=== PATIENT | male | born 1955 | race Caucasian/White ===

== ENCOUNTER 2025-10-09 11:25 | Outpatient (CLI) | payer MEDICARE, SELFPAY ==
--- NOTE | ~2025-10-09 | XR_ITS ---
EXAMINATION: XR chest 2V, 10/09/2025 11:30 RETAIL ASSISTANT HISTORY: J44.1 - Chronic obstructive pulmonary disease with (acute... COMPARISON: No comparisons available. Technique: 2 views obtained. Findings: The lungs are clear, no effusion. No pneumothorax. Heart is normal size. Mediastinal and hilar contours are within normal limits. Bony thorax no acute abnormality. Impression: No acute cardiopulmonary abnormality. Reviewed, dictated and finalized at location P. [place] ASSISTANT Impression: No acute cardiopulmonary abnormality.
[2025-10-09 18:47] LABS: Alanine Aminotransferase 21 U/L (6-50); Albumin Level 4.4 g/dL (3.5-5.1); Alkaline Phosphatase 103 U/L (38-126); Anion Gap 8 mmol/L (4-12); Aspartate Amino Transferase 63 U/L (17-59); Bilirubin,Total 0.5 mg/dL (0.2-1.3); Blood Urea Nitrogen 29 mg/dL (9-20); Calcium 9.5 mg/dL (8.4-10.2); Carbon Dioxide 27 mmol/L (22-30); Chloride 99 mmol/L (98-107); Estimated Glomerular Filt Rate 51; Glucose 157 mg/dL (65-110); Potassium 4.6 mmol/L (3.4-5.0); Sodium 134 mmol/L (137-145); Total Protein 8.2 g/dL (6.3-8.2)
[2025-10-09 18:53] LABS: NT Pro B Type Natriuretic Pept 786 pg/mL (19.9-100)
[2025-10-09 18:54] LABS: Hematocrit 48.5 % (42.0-52.0); Hemoglobin 15.1 g/dL (14.0-18.0); Mean Corpuscular HGB Conc 31.1 g/dl (32-36); Mean Corpuscular Hemoglobin 27.8 pg (26-34); Mean Corpuscular Volume 89.3 fl (80-100); Platelet Count Result 177 k/mm3 (150-375); Red Blood Count 5.43 M/mm3 (4.6-6.20); White Blood Count 9.6 K/mm3 (4.5-10.0)
[2025-10-15 13:49] LABS: Labcorp Miscellaneous Test 21.5
== END 2025-10-09 11:26 | disposition home or self-care (01) ==
PROVIDERS: PCP Nurse Practitioner Adult Health; Visit Provider Nurse Practitioner Adult Health
DX: J44.1 Chronic obstructive pulmonary disease with (acute) exacerbation (principal); R68.83 Chills (without fever); I50.9 Heart failure, unspecified; I11.0 Hypertensive heart disease with heart failure
CPT/HCPCS: 36415; 71046; 80053; 83880; 85027

== ENCOUNTER 2025-10-25 11:39 | Inpatient (IN) | payer MEDICARE, SELFPAY ==
[2025-10-25] VITALS (17 sets, daily range): BP systolic 101–123; BP diastolic 65–82; PULSE 84–117; RESP 18–26; TEMP 36.8–37; O2SAT 93–100; BMI 24.3
--- NOTE | ~2025-10-25 | XR_ITS ---
EXAMINATION: XR chest 1V portable COMPARISON: No comparisons available. HISTORY: shortness of breath FINDINGS: The lungs are clear, no effusion. No pneumothorax. Heart is normal size. Mediastinal and hilar contours are within normal limits. Bony thorax no acute abnormality. Miscellaneous: None Impression: No acute cardiopulmonary abnormality. Reviewed, dictated and finalized at location [facility] Impression: No acute cardiopulmonary abnormality.
--- NOTE | 2025-10-25 11:53 | ECG_ITS ---
Test Date: 2025-10-25 12:00:58 Measurements Intervals [place] Rate: 94 P: 0 NE: 0 QRS: -44 QRSD: 101 T: 82 QT: 345 QTc: 431 Interpretive Statements SINUS RHYTHM LOW QRS VOLTAGE IN PRECORDIAL LEADS INFERIOR INFARCT, AGE INDETERMINATE ANTEROLATERAL INFARCT, AGE INDETERMINATE BORDERLINE ST-T WAVE ABNORMALITY- HIGH LATERAL LEADS BASELINE ARTIFACT- I, II, III, AVR, AVL, AVF, V1-V6 ABNORMAL ECG no prior ECG available for comparison Electronically Signed On 10-25-2025 13:08:29 [employer] H[employer] by Villa Mares D.O.
[2025-10-25 12:30] LABS: Hematocrit 43.4 % (42.0-52.0); Hemoglobin 13.9 g/dL (14.0-18.0); Immature Granulocyte Percent A 1.4 % (0-0.5); Immature Platelet Fraction Pct 4.8 % (0.9-11.2); Lymphocytes Absolute Auto 1.10 K/mm3 (0.9-3.2); Mean Corpuscular HGB Conc 32.0 g/dl (32-36); Mean Corpuscular Hemoglobin 28.4 pg (26-34); Mean Corpuscular Volume 88.6 fl (80-100); Nucleated Red Blood Cells Absolute Auto 0.000 K/mm3 (0.0-0.012); Nucleated Red Blood Cells Perc 0.0 % (0.0-0.2); Platelet Count Result 140 k/mm3 (150-375); Red Blood Count 4.90 M/mm3 (4.6-6.20); White Blood Count 9.2 K/mm3 (4.5-10.0)
[2025-10-25 12:52] LABS: Alanine Aminotransferase 20 U/L (6-50); Albumin Level 3.8 g/dL (3.5-5.1); Alkaline Phosphatase 120 U/L (38-126); Anion Gap 6 mmol/L (4-12); Aspartate Amino Transferase 30 U/L (17-59); Bilirubin,Total 0.6 mg/dL (0.2-1.3); Blood Urea Nitrogen 30 mg/dL (9-20); Calcium 9.1 mg/dL (8.4-10.2); Carbon Dioxide 23 mmol/L (22-30); Chloride 104 mmol/L (98-107); Estimated CRCL calculation 51 ml/min; Estimated Glomerular Filt Rate 53; Glucose 131 mg/dL (65-110); Potassium 4.6 mmol/L (3.4-5.0); Sodium 133 mmol/L (137-145); Total Protein 7.1 g/dL (6.3-8.2)
[2025-10-25] MEDS: ALBUTEROL SULFATE NEB 2.5 MG/3 ML INH 15 MG INHALATION (12:55)
[2025-10-25] MEDS: IPRATROPIUM BR 0.02% INH SOLN 0.5 MG/2.5 ML VIAL 1.5 MG INHALATION (12:56)
[2025-10-25 13:15] LABS: NT Pro B Type Natriuretic Pept 1650 pg/mL (19.9-100)
[2025-10-25 13:18] LABS: INR 1.0; Prothrombin Time 13.4 Seconds (11.1-14.7)
[2025-10-25 13:19] LABS: Partial Thromboplastin Time 26.0 Seconds (22.3-36.8)
--- NOTE | 2025-10-25 13:53 | ED.SOB ---
HPI - SOB/Dyspnea General Chief Complaint: Shortness of Breath/Dyspnea Stated Complaint: HIGH HR, SOB, hx afib Time Seen by Provider: 10/25/25 12:02 History of Present Illness HPI Narrative: Patient is a 69-year-old male who presents ER with shortness of breath. He was recently treated for possible pneumonia and completed 10 days of doxycycline. He also completed a course of steroids 1 week ago. After finishing steroids, he began having increased dyspnea. He has trouble walking due shortness of breath is now unable to walk across the room. No chest pain. Mild to productive cough. No fevers he does have chills. No known sick contacts. Related Data Home Medications ?Medication ?Instructions ?Recorded ?Confirmed ?Last Taken ?Type albuterol sulfate 90 mcg/actuation 1 puff inhalation Q4H PRN 10/09/25 10/25/25 10/25/25 History aerosol inhaler (Ventolin HFA) shortness of breath or wheezing aripiprazole 5 mg tablet 5 mg PO DAILY 10/09/25 10/25/25 10/25/25 History aspirin 81 mg tablet 81 mg PO DAILY 10/09/25 10/25/25 10/25/25 History budesonide 0.5 mg/2 mL suspension 0.5 mg inhalation DAILY 10/09/25 10/25/25 10/25/25 History for nebulization carvedilol 12.5 mg tablet 6.25 mg PO Q12H 10/09/25 10/25/25 10/25/25 History cyproheptadine 4 mg tablet See Rx Instructions PO QHS 10/09/25 10/25/25 10/24/25 History Nightmares divalproex 250 mg tablet,extended 250 mg PO QPM 10/09/25 10/25/25 10/24/25 History release 24 hr empagliflozin 25 mg tablet 12.5 mg PO DAILY 10/09/25 10/25/25 10/25/25 History furosemide 40 mg tablet (Lasix) 40 mg PO QAM 10/09/25 10/25/25 10/25/25 History gabapentin 300 mg capsule 300 mg PO QHS 10/09/25 10/25/25 10/24/25 History ipratropium 0.5 mg-albuterol 3 mg 3 ml inhalation Q6H PRN wheezing 11/10/25/25 10/25/25 History (2.5 mg base)/3 mL nebulization soln levetiracetam 750 mg tablet 750 mg PO Q12H 10/09/25 10/25/25 10/25/25 History mirtazapine 15 mg tablet 15 mg PO QHS 10/09/25 10/25/25 10/24/25 History rivaroxaban 20 mg tablet 20 mg PO QPM 10/09/25 10/25/25 10/24/25 History sacubitril 49 mg-valsartan 51 mg 1 tablet PO BID 10/09/25 10/25/25 10/25/25 History tablet sertraline 100 mg tablet 100 mg PO DAILY 10/09/25 10/25/25 10/24/25 History spironolactone 25 mg tablet 25 mg PO DAILY 10/09/25 10/25/25 10/25/25 History tamsulosin 0.4 mg capsule 0.4 mg PO DAILY 10/09/25 10/25/25 10/24/25 History Allergies Allergy/AdvReac Type Severity Reaction Status Date / Time diazepam (From Valium) Allergy Severe Anxiety Verified 10/25/25 11:42 Review of Systems Review of Systems: All systems reviewed & are unremarkable except as noted in HPI and below Constitutional: Constitutional: Reports no additional constitutional complaints ENT: Reports system reviewed and no additional complaints, except as documented Cardiovascular: Cardiovascular: Reports no additional cardiovascular complaints Respiratory: Respiratory: Reports no additional respiratory complaints Musculoskeletal: Musculoskeletal: Reports no additional musculoskeletal complaints Neurologic: Reports system reviewed and no additional complaints, except as documented PMFSH Past Medical History Medical History (Updated 10/25/25 @ 21:44 by Guillermo Villarreal MD) COPD (chronic obstructive pulmonary disease) Heart failure Hypertension Social History Social History Smoking status: Former smoker Alcohol intake: never Substance use: never Substance use type: does not use Lack of Transportation: No Lack of Food: Never True Current Housing: I Have Housing Concerned About Future Housing: No Difficulty Paying Gas/Electric Bills: No Difficulty Paying for Meds: No Currently Unemployed: No Education: Associate Degree Difficulty w/ Childcare or Family Care: No Spiritual care concerns: No Exam Narrative: GENERAL: Chronically ill-appearing, well-nourished, and in no acute distress. HEAD: Normocephalic, atraumatic. ENT: Mucous membranes moist. CHEST: Diffuse expiratory wheezing. No respiratory distress. HEART: Regular rate and rhythm. Normal peripheral pulses. ABDOMEN: Soft, nontender, nondistended. EXTREMITIES: Normal range of motion. No edema. SKIN: Warm, dry, no rash. NEURO: Alert and oriented x3. PSYCH: Normal mood and affect. Course Course Emergency Course: Wheezing improved but still present after hour long nebulizer treatment. He has received steroids. No hypoxia but has difficulty with ambulation. Admit for continued therapy. Vital Signs Vital signs: Vital Signs Temperature 98.6 F 10/25/25 11:54 Pulse Rate 97 10/25/25 11:54 Respiratory Rate 26 H 10/25/25 11:54 Blood Pressure 119/82 10/25/25 11:54 Pulse Oximetry 100 10/25/25 11:54 Oxygen Delivery Room Air 10/25/25 11:54 Temperature 98.2 F 10/25/25 20:25 Pulse Rate 105 H 10/25/25 20:25 Respiratory Rate 20 10/25/25 20:25 Blood Pressure 102/65 10/25/25 20:25 Pulse Oximetry 95 10/25/25 20:25 Oxygen Delivery Room Air 10/25/25 12:19 MDM Differential Diagnosis Differential Diagnosis: Pneumonia, COPD exacerbation, heart failure exacerbation, pneumothorax, coronary syndrome Lab Data [facility] Lab Attestation statement: I personally reviewed the patient's lab results. 10/25/25 12:20 10/25/25 12:20 Labs: Lab Results 10/25/25 10/25/25 10/25/25 Range/Units 12:20 13:13 16:35 WBC 9.2 (4.5-10.0) K/mm3 RBC 4.90 (4.6-6.20) M/mm3 Hgb 13.9 L (14.0-18.0) g/dL Hct 43.4 (42.0-52.0) % MCV 88.6 (80-100) fl MCH 28.4 (26-34) pg MCHC 32.0 (32-36) g/dl RDW 14.6 H (11.5-14.5) % Plt Count 140 L (150-375) k/mm3 MPV 10.8 H (7.4-10.4) fl Immature Gran % (Auto) 1.4 H (0-0.5) % Neut % (Auto) 72.8 (45.5-73.1) % Lymph % (Auto) 12.0 L (18.3-44.2) % Eddy % (Auto) 9.7 H (2.6-8.5) % Eos % (Auto) 3.3 (0-4.4) % Baso % (Auto) 0.8 (0.2-1.2) % Lymph # (Auto) 1.10 (0.9-3.2) K/mm3 Eddy # (Auto) 0.9 H (0.1-0.6) K/mm3 Eos # (Auto) 0.3 (0-0.3) K/mm3 Baso # (Auto) 0.1 (0.0-0.1) K/mm3 Abs Immat Gran (auto) 0.13 H (0.00-0.031) K/mm3 Absolute Neuts (auto) 6.7 (1.3-6.7) K/mm3 Absolute Nucleated RBC 0.000 (0.0-0.012) K/mm3 Nucleated RBC % 0.0 (0.0-0.2) % % Immature Plt Fraction 4.8 (0.9-11.2) % PT 13.4 (11.1-14.7) Seconds INR 1.0 APTT 26.0 (22.3-36.8) Seconds Methemoglobin 0.2 (0-1.5) %THb Sodium 133 L (137-145) mmol/L Potassium 4.6 (3.4-5.0) mmol/L Chloride 104 (98-107) mmol/L Carbon Dioxide 23 (22-30) mmol/L Anion Gap 6 (4-12) mmol/L BUN 30 H (9-20) mg/dL Creatinine 1.33 H (0.7-1.3) mg/dL Estim Creat Clear Calc 51 ml/min Estimated GFR 53 L (59 - ) Glucose 131 H (65-110) mg/dL Calcium 9.1 (8.4-10.2) mg/dL Total Bilirubin 0.6 (0.2-1.3) mg/dL AST 30 (17-59) U/L ALT 20 (6-50) U/L Alkaline Phosphatase 120 (38-126) U/L NT-Pro-B Natriuret Pep 1650 H (19.9-100) pg/mL Total Protein 7.1 (6.3-8.2) g/dL Albumin 3.8 (3.5-5.1) g/dL Influenza A (RT-PCR) Negative (Negative) Influenza B (RT-PCR) Negative (Negative) RSV (RT-PCR) Negative (Negative) SARS-CoV-2 RNA (RT-PCR) Negative (Negative) ABG Data ABG results: 10/25/25 16:35 Puncture Site Right radial ABG pH 7.357 ABG pCO2 36.2 ABG pO2 71.4 L ABG PO2/FiO2 Ratio 3.40 ABG HCO3 19.9 L ABG O2 Saturation 93.9 L ABG O2 Content 19.0 ABG Base Excess -4.9 A-a Gradient 35.0 Oxyhemoglobin 92.4 Carboxyhemoglobin 1.8 Reduced Hemoglobin 5.6 H Total Hemoglobin 14.6 O2 Delivery Device Room air O2 Liters/Min Not Reportable FiO2 21 Imaging Data Attestation: I personally reviewed and interpreted this imaging study as follows: Radiologist's impression: ITS Impressions Chest X-Ray 10/25/25 13:29 Impression: No acute cardiopulmonary abnormality. ECG Data EKG #1: ECG completion date: 10/25/25 ECG completion time: 12:00 normal rate (94), sinus rhythm, non-specific ST changes, widened QRS and normal QT Discharge Plan Discharge Clinical Impression: COPD exacerbation Patient Disposition: Still a Patient Condition: Stable
[2025-10-25 14:02] LABS: Influenza A QL RT-PCR Negative (Negative); Influenza B QL RT-PCR Negative (Negative); RSV RNA, RT-PCR Negative (Negative); SARS-CoV-2 RNA PCR Negative (Negative)
[2025-10-25 16:38] LABS: Alveolar/Arterial O2 Gradient 35.0 mmHg; Carboxyhemoglobin 1.8 % THb (0-2.0); Fractional Inspired Oxygen 21 %; HCO3 ABG 19.9 mEq/l (22.0-26.0); Methemoglobin ABG 0.2 %THb (0-1.5); Oxygen Content ABG 19.0 %vol (16.0-22.0); Oxygen Saturation ABG 93.9 % (95.0-100.0); PCO2 ABG 36.2 mmHg (35.0-45.0); PO2 ABG 71.4 mmHg (80.0-100.0); PO2 FiO2 Ratio Arterial Blood 3.40 %; Reduced Hemoglobin 5.6 %THb (0-5.0)
[2025-10-25 16:42] LABS: Modified Allen's Test Pass; Site Drawn RIGHT RADIAL
--- NOTE | 2025-10-25 17:22 | PM.IMHP2 ---
H&P: HPI History of Present Illness Date/Time: 10/25/25 17:22 Chief Complaint: Shortness of breath Narrative: 69-year-old male with a past medical history of the COPD, CHF, hypertension presents to the ED on 10/25/2025 with complaints of increasing shortness of breath with intermittent dry cough. Patient recently moved from [place] to live with his daughter. Patient was set up with a new PCP and had his 1st appointment on 10/09/2025. During that appointment patient admitted to having increasing COPD symptoms and using his nebulizer 4 times daily. Patient refused to present to the ED and was treated for an acute exacerbation with doxycycline and Medrol Dosepak. Patient further states he was on a life vest and self discontinued it. Patient completed his steroid and antibiotic course with some relief. Patient's symptoms worsened once finishing the course. Patient presented to his PCP again today and was directed to the ED as he was visibly short of breath. Patient denies fevers, chills, chest pain. [facility] patient currently attempting to establish care here in [place]. PMH: CVA, [place], DVT, OA, COPD, HFrEF, hypertension, anxiety, seizures Initial vital signs 119/82, HR 97, respirations 26, afebrile and 100% on room air. Lab workup reveals slight anemia, sodium 133, BUN 30, creatinine 1.33, GFR 53, BNP 1650. Viral panel negative. ABG pH 7.35, pCO2 36.2, PO2 71.4, HC03 19.9, O2 sat 93.9. EKG reads sinus rhythm with age-indeterminate inferior and anterolateral infarcts. Chest x-ray with no acute cardiopulmonary abnormality. Review of Systems Review of Systems: All systems reviewed & are unremarkable except as noted in HPI and below [facility] Past Medical History Medical History (Updated 10/25/25 @ 23:19 by Georgia Fountain APRN) BPH (benign prostatic hyperplasia) Seizure CVA (cerebral vascular accident) Myocardial infarction DVT (deep venous thrombosis) Osteoarthritis COPD (chronic obstructive pulmonary disease) Heart failure Hypertension Social History Social History Smoking status: Former smoker Alcohol intake: never Substance use: never Substance use type: does not use Lack of Transportation: No Lack of Food: Never True Current Housing: I Have Housing Concerned About Future Housing: No Difficulty Paying Gas/Electric Bills: No Difficulty Paying for Meds: No Currently Unemployed: No Education: Associate Degree Difficulty w/ Childcare or Family Care: No Spiritual care concerns: No Meds Home Medications and Allergies Home Medications ?Medication ?Instructions ?Recorded ?Confirmed ?Type albuterol sulfate 90 mcg/actuation 1 puff inhalation Q4H PRN 10/09/25 10/25/25 History aerosol inhaler (Ventolin HFA) shortness of breath or wheezing aripiprazole 5 mg tablet 5 mg PO DAILY 10/09/25 10/25/25 History aspirin 81 mg tablet 81 mg PO DAILY 10/09/25 10/25/25 History budesonide 0.5 mg/2 mL suspension 0.5 mg inhalation DAILY 10/09/25 10/25/25 History for nebulization carvedilol 12.5 mg tablet 6.25 mg PO Q12H 10/09/25 10/25/25 History cyproheptadine 4 mg tablet See Rx Instructions PO QHS 10/09/25 10/25/25 History Nightmares divalproex 250 mg tablet,extended 250 mg PO QPM 10/09/25 10/25/25 History release 24 hr empagliflozin 25 mg tablet 12.5 mg PO DAILY 10/09/25 10/25/25 History furosemide 40 mg tablet (Lasix) 40 mg PO QAM 10/09/25 10/25/25 History gabapentin 300 mg capsule 300 mg PO QHS 10/09/25 10/25/25 History ipratropium 0.5 mg-albuterol 3 mg 3 ml inhalation Q6H PRN wheezing 10/09/25 10/25/25 History (2.5 mg base)/3 mL nebulization soln levetiracetam 750 mg tablet 750 mg PO Q12H 10/09/25 10/25/25 History mirtazapine 15 mg tablet 15 mg PO QHS 10/09/25 10/25/25 History rivaroxaban 20 mg tablet 20 mg PO QPM 10/09/25 10/25/25 History sacubitril 49 mg-valsartan 51 mg 1 tablet PO BID 10/09/25 10/25/25 History tablet sertraline 100 mg tablet 100 mg PO DAILY 10/09/25 10/25/25 History spironolactone 25 mg tablet 25 mg PO DAILY 10/09/25 10/25/25 History tamsulosin 0.4 mg capsule 0.4 mg PO DAILY 10/09/25 10/25/25 History Allergies Allergy/AdvReac Type Severity Reaction Status Date / Time diazepam (From Valium) Allergy Severe Anxiety Verified 10/25/25 11:42 Vital Signs Vital Signs - 24 hr 10/25/25 11:54 10/25/25 12:11 10/25/25 12:16 Temperature 98.6 F Pulse Rate 97 92 95 Respiratory Rate 26 H 23 H Blood Pressure 119/82 119/82 Pulse Oximetry 100 98 Oxygen Delivery Room Air 10/25/25 12:17 10/25/25 12:19 10/25/25 12:30 Temperature Pulse Rate 99 96 Respiratory Rate 18 19 Blood Pressure Pulse Oximetry 97 96 Oxygen Delivery Room Air 10/25/25 12:31 10/25/25 13:05 10/25/25 14:28 Temperature Pulse Rate 84 97 99 Respiratory Rate 19 20 20 Blood Pressure 110/77 110/77 123/70 Pulse Oximetry 97 100 100 Oxygen Delivery 10/25/25 15:41 10/25/25 15:42 10/25/25 15:43 Temperature Pulse Rate 105 H 114 H 117 H Respiratory Rate Blood Pressure 114/75 107/78 101/79 Pulse Oximetry Oxygen Delivery 10/25/25 17:05 Temperature Pulse Rate 101 H Respiratory Rate 20 Blood Pressure 102/72 Pulse Oximetry 96 Oxygen Delivery Exam Narrative: GENERAL: non-toxic appearing, in no acute distress. HEAD: Normocephalic, atraumatic. EYES: PERRLA. Conjunctivae clear. NOSE: Normal no drainage. THROAT: Pharynx clear NECK: Trachea midline. No adenopathy, no masses. RESPIRATORY: Airway patent. Expiratory wheezes bilaterally. No distress CARDIOVASCULAR: Regular rate and rhythm GASTROINTESTINAL: Abdomen is soft and nontender. No organomegaly. Bowel sounds normal in all quadrants. GENITOURINARY: Defer MUSCULOSKELETAL: Moves all extremities. No gross deformities. No edema SKIN: Warm, dry, normal color. NEURO: A&O X4. Speech clear PSYCHIATRIC: Normal interaction Results Labs Labs: Short CBC 10/25/25 Range/Units 12:20 WBC 9.2 (4.5-10.0) K/mm3 Hgb 13.9 L (14.0-18.0) g/dL Hct 43.4 (42.0-52.0) % Plt Count 140 L (150-375) k/mm3 BMP 10/25/25 12:20 Sodium 133 L Potassium 4.6 Chloride 104 Carbon Dioxide 23 BUN 30 H Creatinine 1.33 H Glucose 131 H Calcium 9.1 Liver Function 10/25/25 Range/Units 12:20 Total Bilirubin 0.6 (0.2-1.3) mg/dL AST 30 (17-59) U/L ALT 20 (6-50) U/L Alkaline Phosphatase 120 (38-126) U/L Albumin 3.8 (3.5-5.1) g/dL Quality VTE Prophylaxis VTE prophylaxis: pharmacologic ordered Assessment and Plan Assessment and plan (1) COPD exacerbation: Code(s): J44.1 - Chronic obstructive pulmonary disease with (acute) exacerbation Status: Acute Assessment and Plan: Having increasing COPD symptoms since at least 10/09/2025 with minimal relief from outpatient treatment. Chest x-ray with no acute process. Patient has new patient appointment with pulmonology on 12/25/2025. - continuous albuterol nebulizer in ED - DuoNebs Q6H caridad - Methylprednisolone 60 mg IV q.6 - home medications: DuoNeb p.r.n., recently resumed Pulmicort, albuterol p.r.n. - currently not requiring supplemental O2 - Pulmicort (2) Heart failure: Qualifiers: Heart failure type: unspecified Heart failure chronicity: unspecified Qualified Code(s): I50.9 - Heart failure, unspecified Code(s): I50.9 - Heart failure, unspecified Status: Chronic Assessment and Plan: Patient was reportedly wearing a life vest in [place] before moving. EF was reportedly ?low? per daughter. BNP 1650, up from 786 on 10/09. - echo ordered - 40 mg IV p.o. furosemide once - continue furosemide, Jardiance, Entresto, spironolactone - monitor I&Os - trend renal function - will likely need LifeVest (3) Hypertension: Qualifiers: Hypertension type: primary hypertension Qualified Code(s): I10 - Essential (primary) hypertension Code(s): I10 - Essential (primary) hypertension Status: Chronic Assessment and Plan: Continue Coreg (4) Anemia: Qualifiers: Anemia type: unspecified type Qualified Code(s): D64.9 - Anemia, unspecified Code(s): D64.9 - Anemia, unspecified Status: Acute Assessment and Plan: No active bleeding. Patient denies melena. - Hgb 13.9 - add iron, TIBC, ferritin, B12, folic acid, and TSH - trend H&H (5) BPH (benign prostatic hyperplasia): Qualifiers: Lower urinary tract symptom presence: unspecified whether lower urinary tract symptoms present Qualified Code(s): N40.0 - Benign prostatic hyperplasia without lower urinary tract symptoms Code(s): N40.0 - Benign prostatic hyperplasia without lower urinary tract symptoms Status: Acute Assessment and Plan: Continue tamsulosin (6) Seizure: Code(s): R56.9 - Unspecified convulsions Status: Chronic Assessment and Plan: History of seizures. Has not had one in ?years -continue Keppra, Depakote Plan Diet: Heart healthy DVT prophylaxis: Xarelto lines/drains: PIV Fluids: NA Code status: Full Prior Studies I have reviewed the following patient records and this information was taken into consideration when formulating the assessment and plan.: previous labs, previous ER visits, previous hospitalizations and previous clinic visits Time Spent with Patient Time with patient: 45 - 74 minutes Hospitalist MIPS Advance Care Plan I have confirmed that the patient's Advanced Care Plan is present, code status is documented, or surrogate decision maker is listed in patient medical record.: Yes Medication Reconciliation I have utilized all available resources to obtain, update and review the patients current medications (includes all prescriptions, OTC, herbals, cannabis, and nutritional supplements).: Yes
--- NOTE | 2025-10-25 18:28 | WPCEDHO ---
ED Hand Off Checklist All vitals saved:yes IV Site documented:yes All med administrations documented:yes Triage Note Triage Note Pt with hx of CHF, previous life- 10/25/25 11:54 vest, COPD presents with SOB worse over the last week. States approximately two weeks ago he saw PCP, was placed on steroids and antibiotic with some improvement but has worsened again since finishing that course . PCP told him to come to ED today with concern of fluid around his heart. Tachypneic with shallow breathing. SpO2 100% on RA. Allergies diazepam (From Valium) Allergy (Severe, Verified 10/25/25 11:42) Anxiety Makes very high strung. Administered/Completed Medications Discontinued Medications Albuterol (Albuterol Sulfate Neb 2.5 Mg/3 Ml Inh) 15 mg INHALATION ONCE STA Stop: 10/25/25 12:23 Last Admin: 10/25/25 12:55 Dose: 15 mg Documented By: SUKUMAR Ipratropium Fenton (Ipratropium Br 0.02% Inh Soln 0.5 Mg/2.5 Ml Vial) 1.5 mg INHALATION ONCE STA Stop: 10/25/25 12:23 Last Admin: 10/25/25 12:56 Dose: 1.5 mg Documented By: SUKUMAR Methylprednisolone Sodium Succinate (Methylprednisolone Sod Succ 125 Mg Vial) 125 mg IV PUSH ONCE STA Stop: 10/25/25 12:23 Last Admin: 10/25/25 13:05 Dose: 125 mg Documented By: JOEY Interventions/Assessments Cardiac Monitoring Start: 10/25/25 11:41 Freq: Status: Active Protocol: Document 10/25/25 12:11 JOEY (Rec: 10/25/25 12:11 JOEY [id number]) Manager Law Assessment Manager Law Yes Applied Pulse Rate (60-100 92 beats/min) IV / Saline Lock, Insert Start: 10/25/25 11:53 Freq: STAT Status: Active Protocol: Document 10/25/25 12:18 JOEY (Rec: 10/25/25 12:19 JOEY [id number]) IV Assessment Peripheral Access Right Wrist IV Catheter Access Initiated IV Insertion Date 10/25/25 IV Insertion Time 12:19 Catheter Gauge 18 IV Site Assessment WNL IV Care and WNL Maintenance PA: Cardiovascular Assessment Start: 10/25/25 11:41 Freq: Status: Active Protocol: Document 10/25/25 13:06 [facility] (Rec: 10/25/25 13:06 [facility] [id number]) Cardiovascular Assessment Cardiovascular Dyspnea Symptoms PA: Respiratory Assessment Start: 10/25/25 11:41 Freq: Status: Active Protocol: Document 10/25/25 12:19 [facility] (Rec: 10/25/25 12:20 [facility] [id number]) Respiratory Assessment Symptoms Cough,Shortness of Breath at Rest,Wheezing Effort Labored,Short of Breath Pattern Tachypnea Depth Normal Chest Expansion Symmetrical Bilateral Throughout Phase Expiratory Lung Sounds Diminished,Wheezes Cough Description Productive Oxygen Delivery Oxygen Delivery Room Air Pulse Oximetry (90- 96 100 %) Last Vital Signs Temperature 98.6 F 10/25/25 11:54 Pulse Rate 101 H 10/25/25 17:05 Respiratory Rate 20 10/25/25 17:05 Pulse Oximetry 96 10/25/25 17:05 Blood Pressure 102/72 10/25/25 17:05 Blood Pressure Mean 82 10/25/25 17:05 Blood Pressure Position Supine 10/25/25 17:05 Oxygen Delivery Room Air 10/25/25 12:19 Weight 83.7 kg 10/25/25 11:54 Last Result - Abnormals Only Hgb 13.9 g/dL (14.0-18.0) L 10/25/25 12:20 RDW 14.6 % (11.5-14.5) H 10/25/25 12:20 Plt Count 140 k/mm3 (150-375) L 10/25/25 12:20 MPV 10.8 fl (7.4-10.4) H 10/25/25 12:20 Immature Gran % (Auto) 1.4 % (0-0.5) H 10/25/25 12:20 Lymph % (Auto) 12.0 % (18.3-44.2) L 10/25/25 12:20 [place] % (Auto) 9.7 % (2.6-8.5) H 10/25/25 12:20 [place] # (Auto) 0.9 K/mm3 (0.1-0.6) H 10/25/25 12:20 Abs Immat Gran (auto) 0.13 K/mm3 (0.00-0.031) H 10/25/25 12:20 ABG pO2 71.4 mmHg (80.0-100.0) L 10/25/25 16:35 ABG HCO3 19.9 mEq/l (22.0-26.0) L 10/25/25 16:35 ABG O2 Saturation 93.9 % (95.0-100.0) L 10/25/25 16:35 Reduced Hemoglobin 5.6 %THb (0-5.0) H 10/25/25 16:35 Sodium 133 mmol/L (137-145) L 10/25/25 12:20 BUN 30 mg/dL (9-20) H 10/25/25 12:20 Creatinine 1.33 mg/dL (0.7-1.3) H 10/25/25 12:20 Estimated GFR 53 (59-) L 10/25/25 12:20 Glucose 131 mg/dL (65-110) H 10/25/25 12:20 NT-Pro-B Natriuret Pep 1650 pg/mL (19.9-100) H 10/25/25 12:20 Most Recent Suicide Severity Rating Suicide Severity Rating NO RISK INDICATED 10/25/25 11:54
--- NOTE | 2025-10-25 18:54 | PC.NURSE ---
This patient, Beto Baires, was admitted to [facility] Surg Room 331-02. Patient/family oriented to hospital policies and general routines including ID bracelet, bed and alarms, visiting hours, pain management, procedures, bathroom and other care routines, personal items, smoking policy, room service/diet, and visiting hours. Information on how to activate the Rapid Response Team has been discussed. Patient/Family are encouraged to report perceived risks to care and to ask questions if they do not understand what they are told or what they should do.
[2025-10-25] MEDS: SERTRALINE HCL 50 MG TABLET 100 MG PO (21:47)
[2025-10-25] MEDS: GABAPENTIN 300 MG CAPSULE PO (21:47)
[2025-10-25] MEDS: RIVAROXABAN 20 MG TABLET PO (21:48)
[2025-10-25] MEDS: MIRTAZAPINE 15 MG TABLET PO (21:48)
[2025-10-25] MEDS: SACUBITRIL/VALSARTAN 49-51 MG TABLET 1 TABLET PO (21:48)
[2025-10-25] MEDS: DIVALPROEX SODIUM ER 250 MG TAB.24H PO (21:53)
[2025-10-25] MEDS: CYPROHEPTADINE HCL 4 MG TABLET 8 MG PO (21:54)
[2025-10-25] MEDS: CYPROHEPTADINE HCL 2 MG TABLET PO (21:54)
[2025-10-25] MEDS: TAMSULOSIN HCL 0.4 MG CAPSULE PO (21:57)
[2025-10-25] MEDS: IPRATROPIUM 0.5 MG/ALBUTEROL SULFATE 2.5 MG (BASE) AMPUL.NEB 3 ML INHALATION (22:05)
[2025-10-25] MEDS: FUROSEMIDE INJ 40 MG/4 ML VIAL IV PUSH (22:20)
[2025-10-26] VITALS (13 sets, daily range): BP systolic 91–100; BP diastolic 58–63; PULSE 74–90; RESP 16–18; TEMP 36.6–36.8; O2SAT 91–100
--- NOTE | 2025-10-26 | ECHO_ITS ---
Patient Info Name: Beto Baires Age: 69 years : 1955 Gender: Male Ht: 72 in Wt: 179 lbs BSA: 2.04 m2 HR: 74 bpm BP: 100 / 58 mmHg Heart Rhythm: Sinus Rhythm Technical Quality: Good Exam Date: 10/26/2025 11:50 AM Patient Status: I Admit Date: 10/25/2025 Exam Type: CA echo dop color flow w con Complete two-dimensional, color flow and Doppler transthoracic echocardiogram is performed with contrast to opacify the left ventricle and to improve the deliniation of the left ventricle endocardial borders. Staff Referring Physician: Luann Razo Freezer Laboratory Technician: Anthony Boone Attending Provider: Soto Santillan MD Contrast/Agitated Saline Contrast/Ag. Saline: Definity Amount: 2.00 ml Administered By: Anthony Boone Existing IV Access: Yes IV Access Condition: patent with no signs of infiltration Summary 1. Technically difficult study with limited views. 2. Overall appears to have normal biventricular size and systolic function. 3. No significant valvular abnormalities. Left Ventricle The left ventricle is normal in size and systolic function. The left ventricular ejection fraction is visually estimated to be 50-55%. There is no definite wall motion abnormalities. Right Ventricle The right ventricle is normal in size and systolic function. Aortic Valve There is no aortic stenosis. Pulmonic Valve The pulmonic valve is not well visualized. Mitral Valve The mitral valve is normal. There is no mitral regurgitation. Tricuspid Valve The tricuspid valve is normal. Pericardium/Pleural Pericardium is normal in appearance with no evidence for significant pericardial effusion. Inferior Vena Cava Inferior vena cava is not well visualized. Aorta The aortic root is not well visualized. Left Ventricular Outflow Tract Name Value Normal LVOT Doppler LVOT Peak Velocity 69 cm/s LVOT Peak Gradient 2 mmHg LVOT Mean Gradient 1 mmHg LVOT VTI 12 cm Mitral Valve Name Value Normal MV Diastolic Function MV E Peak Velocity 47 cm/s MV A Peak Velocity 76 cm/s MV E/A 0.6 MV Decel Time (PW) 57 ms MV Annular TDI MV E/e' (Septal) 5.5 MV E/e' (Lateral) 4.3 MV E/e' (Average) 4.9 Tricuspid Valve Name Value Normal TV Regurgitation Doppler TR Peak Velocity 107 cm/s TR Peak Gradient 5 mmHg TV Annular TDI TV Lateral Donita s' Velocity 12.9 cm/s >=9.5 Aortic Valve Name Value Normal AV Doppler AV Peak Velocity 79 cm/s AV Peak Gradient 2 mmHg AV DI (Donnie) 0.87 Ventricles Name Value Normal LV Dimensions 2D/MM IVS Diastolic Thickness (2D) 1.0 cm 0.6-1.0 LVID Diastole (2D) 4.2 cm 4.2-5.8 LVIW Diastolic Thickness (2D) 1.1 cm 0.6-1.0 LVID Systole (2D) 3.4 cm 2.5-4.0 LV Mass (2D Cubed) 151.18 g 88.00-224.00 LV Mass Index (2D Cubed) 74 g/m2 49-115 Relative Wall Thickness (2D) 0.53 <=0.42 LV Fractional Shortening/Ejection Fraction 2D/MM LV Fractional Shortening (2D) 21 % 25-43 LV EF (2D Teichholz) 43 % LV Diastolic Volume (4C MOD) 163 ml LV EF (4C MOD) 45 % LV Diastolic Volume (2C MOD) 126 ml LV EF (2C MOD) 58 % LV Diastolic Volume (BP MOD) 143 ml 62-150 LV Diastolic Volume Index (BP MOD) 70 ml/m2 34-74 LV Systolic Volume (BP MOD) 69 ml 21-61 LV Systolic Volume Index (BP MOD) 34 ml/m2 11-31 LV EF (BP MOD) 52 % 52-72 LV Diastolic Length (4C) 7.8 cm LV Systolic Length (4C) 6.8 cm LV Stroke Volume (4C MOD) 73 ml Atria Name Value Normal LA Dimensions LA Volume (4C A-L) 39 ml RA Dimensions RA Systolic Major [place] Length (4C) 3.1 cm 2.1-2.7 RA Area (4C) 15.7 cm2 <=18.0 Report Signatures
[2025-10-26] MEDS: IPRATROPIUM 0.5 MG/ALBUTEROL SULFATE 2.5 MG (BASE) AMPUL.NEB 3 ML INHALATION ×4 (02:50→21:13)
[2025-10-26 06:33] LABS: Hematocrit 39.8 % (42.0-52.0); Hemoglobin 12.8 g/dL (14.0-18.0); Immature Granulocyte Percent A 1.1 % (0-0.5); Lymphocytes Absolute Auto 0.69 K/mm3 (0.9-3.2); Mean Corpuscular HGB Conc 32.2 g/dl (32-36); Mean Corpuscular Hemoglobin 27.9 pg (26-34); Mean Corpuscular Volume 86.9 fl (80-100); Nucleated Red Blood Cells Absolute Auto 0.000 K/mm3 (0.0-0.012); Nucleated Red Blood Cells Perc 0.0 % (0.0-0.2); Platelet Count Result 136 k/mm3 (150-375); Red Blood Count 4.58 M/mm3 (4.6-6.20); White Blood Count 11.5 K/mm3 (4.5-10.0)
[2025-10-26 06:59] LABS: Anion Gap 5 mmol/L (4-12); Blood Urea Nitrogen 35 mg/dL (9-20); Calcium 8.8 mg/dL (8.4-10.2); Carbon Dioxide 24 mmol/L (22-30); Chloride 101 mmol/L (98-107); Estimated CRCL calculation 51 ml/min; Estimated Glomerular Filt Rate 54; Glucose 178 mg/dL (65-110); Potassium 4.6 mmol/L (3.4-5.0); Sodium 130 mmol/L (137-145)
[2025-10-26 07:04] LABS: Iron 45 ug/dL (49-181)
[2025-10-26 07:13] LABS: Percent Iron Saturation 18 % (20-50)
[2025-10-26] MEDS: BUDESONIDE RESPULE NEB 0.5 MG/2 ML AMP INHALATION (07:34)
[2025-10-26 07:41] LABS: Thyroid Stimulating Hormone Reflex 0.254 uIU/mL (0.465-4.68)
[2025-10-26 07:45] LABS: Ferritin 101.00 ng/mL (11.1-264)
[2025-10-26 08:07] LABS: Vitamin B12 682.0 pg/mL (239-931)
[2025-10-26] MEDS: SACUBITRIL/VALSARTAN 49-51 MG TABLET 1 TABLET PO ×2 (08:46→20:15)
[2025-10-26] MEDS: ASPIRIN 81 MG CHEWABLE TABLET PO (08:46)
[2025-10-26] MEDS: FUROSEMIDE 40 MG TABLET PO (08:46)
[2025-10-26] MEDS: SPIRONOLACTONE 25 MG TABLET PO (08:47)
[2025-10-26 09:18] LABS: Free T4 Free Thyroxine Reflex 1.12 ng/dL (0.78-2.19)
[2025-10-26] MEDS: EMPAGLIFLOZIN 12.5 MG TABLET PO (09:36)
--- NOTE | 2025-10-26 10:53 | PM.CNCAR ---
Assessment and Plan Assessment and plan (1) Congestive heart failure: Code(s): I50.9 - Heart failure, unspecified Status: Acute Assessment and Plan: acute on chronic most likely systolic heart failure was noted to have an elevated pBNP of 1650 on admission CXR with no acute cardiopulmonary process he was given a dose of IV lasix with improvement in symptoms does not appear volume overloaded at this time and would continue with lasix 40 mg daily echo is pending (2) COPD exacerbation: Code(s): J44.1 - Chronic obstructive pulmonary disease with (acute) exacerbation Status: Acute Assessment and Plan: continue with nebs and steroids as per primary team (3) CAD (coronary artery disease): Code(s): I25.10 - Atherosclerotic heart disease of [place] coronary artery without angina pectoris Status: Acute Assessment and Plan: patient reports a history of CAD with 5 stents in the past he follows with the [place] and records are unavailable at this time He is currently chest pain free will continue aspirin 81 mg daily, coreg 6.25 mg BID would add lipitor 20 mg daily if no contraindication, will check lipid panel as well (4) Hypertension: Qualifiers: Hypertension type: primary hypertension Qualified Code(s): I10 - Essential (primary) hypertension Code(s): I10 - Essential (primary) hypertension Status: Chronic Assessment and Plan: blood pressure controlled/low normal at this time He denies any dizziness will continue with coreg 6.25 mg BID, entresto 49-51 mg BID and aldactone 25 mg daily (5) Dilated cardiomyopathy: Code(s): I42.0 - Dilated cardiomyopathy Status: Acute Assessment and Plan: patient reports recent diagnosis over the summer of CMP and that lifevest was placed He returned the vest in July when he moved he is on GDMT with aldactone 25 mg daily, Entresto 49-51 mg BID, Jardiance 12.5mg daily and coreg 6.25 mg BID would continue present therapy Will update echo, if continued reduced EF consider OP referral for ICD (6) Chest pain: Code(s): R07.9 - Chest pain, unspecified Status: Acute Assessment and Plan: patient reports chest pressure on admission with activity-has since resolved unclear if related to COPD, CHF or ischemic in nature, but most likely not ischemic as resolved will update EKG as admission tracing poor quality will check troponin will plan echo to look for any wall motion abnormality has known history of CAD and would most likely benefit from stress testing on OP basis once acute issues resolved (7) DVT (deep venous thrombosis): Code(s): I82.409 - Acute embolism and thrombosis of unspecified deep veins of unspecified lower extremity Status: Chronic Assessment and Plan: 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 male with a PMH of dilated CMP, CAD, HTN, COPD, CVA and DVT who presented to the ER with reports of shortness of breath. Patient reports he moved here to [place] recently from [place] where at that time he was following with cardiology at the [place]. A couple of weeks ago he began noting SOB and went to see his primary who started him on steroids for his COPD, he was feeling better but then a few days ago began noting SOB again. He also noted some pressure in the mid chest with activity. He denies any chest pain since arrival to the hospital, and states the chest pain he felt was different than pain experienced before previous stents. He denies any LE edema. No dizziness or palpitations. States he is compliant with all medications at home. He was noted to have an elevated pBNP and self reported CMP for which we were consulted. Review of Systems Review of Systems: All systems reviewed & are unremarkable except as noted in HPI and below PMFSH Past Medical History Medical History (Updated 10/26/25 @ 11:28 by Kellie Workman, RACHELE) BPH (benign prostatic hyperplasia) Seizure CVA (cerebral vascular accident) Myocardial infarction DVT (deep venous thrombosis) Osteoarthritis COPD (chronic obstructive pulmonary disease) Heart failure Hypertension Social History Social History Smoking status: Former smoker Tobacco type: cigarettes Second hand tobacco smoke exposure: No Smoking end date: 10/22/25 Alcohol intake: never Substance use: never Substance use type: does not use Lack of Transportation: No Lack of Food: Never True Current Housing: I Have Housing Concerned About Future Housing: No Difficulty Paying Gas/Electric Bills: No Difficulty Paying for Meds: No Currently Unemployed: No Education: Associate Degree Difficulty w/ Childcare or Family Care: No Spiritual care concerns: No Meds Home Medications and Allergies Home Medications ?Medication ?Instructions ?Recorded ?Confirmed ?Type albuterol sulfate 90 mcg/actuation 1 puff inhalation Q4H PRN 10/09/25 10/25/25 History aerosol inhaler (Ventolin HFA) shortness of breath or wheezing aripiprazole 5 mg tablet 5 mg PO DAILY 10/09/25 10/25/25 History aspirin 81 mg tablet 81 mg PO DAILY 10/09/25 10/25/25 History budesonide 0.5 mg/2 mL suspension 0.5 mg inhalation DAILY 10/09/25 10/25/25 History for nebulization carvedilol 12.5 mg tablet 6.25 mg PO Q12H 10/09/25 10/25/25 History cyproheptadine 4 mg tablet See Rx Instructions PO QHS 10/09/25 10/25/25 History Nightmares divalproex 250 mg tablet,extended 250 mg PO QPM 10/09/25 10/25/25 History release 24 hr empagliflozin 25 mg tablet 12.5 mg PO DAILY 10/09/25 10/25/25 History furosemide 40 mg tablet (Lasix) 40 mg PO QAM 10/09/25 10/25/25 History gabapentin 300 mg capsule 300 mg PO QHS 10/09/25 10/25/25 History ipratropium 0.5 mg-albuterol 3 mg 3 ml inhalation Q6H PRN wheezing 10/09/25 10/25/25 History (2.5 mg base)/3 mL nebulization soln levetiracetam 750 mg tablet 750 mg PO Q12H 10/09/25 10/25/25 History mirtazapine 15 mg tablet 15 mg PO QHS 10/09/25 10/25/25 History rivaroxaban 20 mg tablet 20 mg PO QPM 10/09/25 10/25/25 History sacubitril 49 mg-valsartan 51 mg 1 tablet PO BID 10/09/25 10/25/25 History tablet sertraline 100 mg tablet 100 mg PO DAILY 10/09/25 10/25/25 History spironolactone 25 mg tablet 25 mg PO DAILY 10/09/25 10/25/25 History tamsulosin 0.4 mg capsule 0.4 mg PO DAILY 10/09/25 10/25/25 History Allergies Allergy/AdvReac Type Severity Reaction Status Date / Time diazepam (From Valium) Allergy Severe Anxiety Verified 10/25/25 11:42 Vital Signs Vital Signs - 24 hr 10/25/25 11:54 10/25/25 12:11 10/25/25 12:16 Temperature 37.0 C Pulse Rate 97 92 95 Respiratory Rate 26 H 23 H Blood Pressure 119/82 119/82 Pulse Oximetry 100 98 Oxygen Delivery Room Air Fraction of Inspired Oxygen 10/25/25 12:17 10/25/25 12:19 10/25/25 12:30 Temperature Pulse Rate 99 96 Respiratory Rate 18 19 Blood Pressure Pulse Oximetry 97 96 Oxygen Delivery Room Air Fraction of Inspired Oxygen 10/25/25 12:31 10/25/25 13:05 10/25/25 14:28 Temperature Pulse Rate 84 97 99 Respiratory Rate 19 20 20 Blood Pressure 110/77 110/77 123/70 Pulse Oximetry 97 100 100 Oxygen Delivery Fraction of Inspired Oxygen 10/25/25 15:41 10/25/25 15:42 10/25/25 15:43 Temperature Pulse Rate 105 H 114 H 117 H Respiratory Rate Blood Pressure 114/75 107/78 101/79 Pulse Oximetry Oxygen Delivery Fraction of Inspired Oxygen 10/25/25 17:05 10/25/25 18:31 10/25/25 20:25 Temperature 36.8 C Pulse Rate 101 H 116 H 105 H Respiratory Rate 20 22 H 20 Blood Pressure 102/72 114/80 102/65 Pulse Oximetry 96 98 95 Oxygen Delivery Fraction of Inspired Oxygen 10/25/25 21:47 10/25/25 22:05 10/25/25 22:05 Temperature Pulse Rate 105 H 101 H 101 H Respiratory Rate 18 18 Blood Pressure Pulse Oximetry 93 Oxygen Delivery Room Air Fraction of Inspired Oxygen 21 10/26/25 02:50 10/26/25 04:42 10/26/25 07:35 Temperature 36.8 C Pulse Rate 84 74 Respiratory Rate 16 18 Blood Pressure 100/58 L Pulse Oximetry 96 93 Oxygen Delivery Room Air Fraction of Inspired Oxygen 10/26/25 07:35 10/26/25 07:45 10/26/25 08:46 Temperature Pulse Rate 76 90 88 Respiratory Rate 16 16 Blood Pressure Pulse Oximetry Oxygen Delivery Fraction of Inspired Oxygen Exam Const: General: comfortable and no acute distress Eyes: Sclera: sclerae normal Neck: Neck: no JVD Resp: Effort & Inspection: normal respiratory effort Auscultation: wheezes Cardio: Rate: regular rate Rhythm: regular rhythm Heart sounds: no gallops, no murmurs and no rubs Neuro: Speech: normal speech Extrem: General: no edema Psych: Mental Status: mental status grossly normal Results Labs and Meds 10/26/25 05:56 10/26/25 05:56 Lab results: Cardiac Enzymes 10/25/25 Range/Units 12:20 AST 30 (17-59) U/L Coagulation 10/25/25 Range/Units 12:20 PT 13.4 (11.1-14.7) Seconds APTT 26.0 (22.3-36.8) Seconds CBC 10/25/25 10/26/25 Range/Units 12:20 05:56 WBC 9.2 11.5 H (4.5-10.0) K/mm3 RBC 4.90 4.58 L (4.6-6.20) M/mm3 Hgb 13.9 L 12.8 L (14.0-18.0) g/dL Hct 43.4 39.8 L (42.0-52.0) % Plt Count 140 L 136 L (150-375) k/mm3 Lymph # (Auto) 1.10 0.69 L (0.9-3.2) K/mm3 [place] # (Auto) 0.9 H 0.1 (0.1-0.6) K/mm3 Eos # (Auto) 0.3 0.0 (0-0.3) K/mm3 Baso # (Auto) 0.1 0.0 (0.0-0.1) K/mm3 Comprehensive Metabolic Panel 10/25/25 10/26/25 Range/Units 12:20 05:56 Sodium 133 L 130 L (137-145) mmol/L Potassium 4.6 4.6 (3.4-5.0) mmol/L Chloride 104 101 (98-107) mmol/L Carbon Dioxide 23 24 (22-30) mmol/L BUN 30 H 35 H (9-20) mg/dL Creatinine 1.33 H 1.32 H (0.7-1.3) mg/dL Glucose 131 H 178 H (65-110) mg/dL Calcium 9.1 8.8 (8.4-10.2) mg/dL AST 30 (17-59) U/L ALT 20 (6-50) U/L Alkaline Phosphatase 120 (38-126) U/L Total Protein 7.1 (6.3-8.2) g/dL Albumin 3.8 (3.5-5.1) g/dL Intake and Output 10/25/25 10/26/25 10/26/25 23:59 07:59 15:59 Intake Total 550 250 Output Total 200 Balance 550 50 Intake: Oral 550 250 Output: Urine 200 Other: # Unmeasured Voids 1 1
[2025-10-26 10:58] LABS: Total Triiodothyronine (T3) 2.03 NG/ML (0.82-1.58)
--- NOTE | 2025-10-26 11:23 | ECG_ITS ---
Test Date: 2025-10-26 13:04:11 Measurements Intervals [place] Rate: 78 P: 80 MT: 201 QRS: -38 QRSD: 102 T: 107 QT: 387 QTc: 443 Interpretive Statements SINUS RHYTHM LOW QRS VOLTAGE IN PRECORDIAL LEADS ANTEROLATERAL INFARCT, AGE INDETERMINATE INFERIOR INFARCT, AGE INDETERMINATE BORDERLINE ST-T WAVE ABNORMALITY- HIGH LATERAL LEADS BASELINE ARTIFACT- I, II, III, AVR, AVL, AVF ABNORMAL ECG Compared to ECG 10/25/2025 12:00:58 No significant changes Electronically Signed On 10-26-2025 13:36:44 DISK SHARPENER by Villa Mares D.O.
[2025-10-26 11:49] LABS: Cholesterol 155 mg/dL (0-200); HDL Direct 41 mg/dL; Triglycerides 63 mg/dL (<150)
[2025-10-26 11:53] LABS: Troponin I 0.014 ng/mL (0.000-0.034)
[2025-10-26] MEDS: PERFLUTREN LIPID MICROSPHERES 1.5 ML VIAL DILUTED TO 10 ML TOTAL VOLUME IV PUSH (13:09)
--- NOTE | 2025-10-26 13:10 | IVDEFINITY ---
Prior to administration of IV Definity the patient was educated on the risks and benefits of the imaging enhancing agent including potential adverse side effects. The patient verbalized understanding. Allergies were verified. No exclusion criteria were identified and at least one of the following inclusion criteria were met: 1) physician request, 2) patient technically difficult to image (per the [place] [employer] guidelines of two or more segments not discernable within the apical view), or 3) questionable left ventricular function. ?
[2025-10-26] MEDS: ATORVASTATIN 20 MG TABLET PO (13:11)
--- NOTE | 2025-10-26 16:14 | P.PNIM_ITS ---
Assessment and Plan Assessment and Plan (1) COPD exacerbation: Code(s): J44.1 - Chronic obstructive pulmonary disease with (acute) exacerbation Status: Acute Assessment and Plan: Having increasing COPD symptoms since at least 10/09/2025 with minimal relief from outpatient treatment. Chest x-ray with no acute process. Patient has new patient appointment with pulmonology on 12/25/2025. - continuous albuterol nebulizer in ED - DuoNebs Q6H caridad - Methylprednisolone 60 mg IV q.6 - home medications: DuoNeb p.r.n., recently resumed Pulmicort, albuterol p.r.n. - currently not requiring supplemental O2 - Pulmicort (2) Heart failure: Qualifiers: Heart failure type: unspecified Heart failure chronicity: unspecified Qualified Code(s): I50.9 - Heart failure, unspecified Code(s): I50.9 - Heart failure, unspecified Status: Chronic Assessment and Plan: Patient was reportedly wearing a life vest in [place] before moving. EF was reportedly ?low? per daughter. BNP 1650, up from 786 on 10/09. - echo ordered - 40 mg IV p.o. furosemide once - continue furosemide, Jardiance, Entresto, spironolactone - monitor I&Os - trend renal function - will likely need LifeVest (3) Hypertension: Qualifiers: Hypertension type: primary hypertension Qualified Code(s): I10 - Essential (primary) hypertension Code(s): I10 - Essential (primary) hypertension Status: Chronic Assessment and Plan: Continue Coreg (4) Anemia: Qualifiers: Anemia type: unspecified type Qualified Code(s): D64.9 - Anemia, unspecified Code(s): D64.9 - Anemia, unspecified Status: Acute Assessment and Plan: No active bleeding. Patient denies melena. - Hgb 13.9 - add iron, TIBC, ferritin, B12, folic acid, and TSH - trend H&H (5) BPH (benign prostatic hyperplasia): Qualifiers: Lower urinary tract symptom presence: unspecified whether lower urinary tract symptoms present Qualified Code(s): N40.0 - Benign prostatic hyperplasia without lower urinary tract symptoms Code(s): N40.0 - Benign prostatic hyperplasia without lower urinary tract symptoms Status: Acute Assessment and Plan: Continue tamsulosin (6) Seizure: Code(s): R56.9 - Unspecified convulsions Status: Chronic Assessment and Plan: History of seizures. Has not had one in ?years -continue Shaheen Mcallister Plan patient with history of cardiomyopathy patient presented with shortness of breath volume overloaded, patient was give IV Lasix 40mg in the ER and patient stats he is feeling much better compared to when he arrived, most likely patient is having acute on chronic systolic CHF, cardiac ECHO is pending, at one time patient was on LIFEVEST however he decided to stop wearing the LIFEVEST will consult director of music for further recommendation to follow. patient also has history of COPD which also causing his shortness of breath and being treated prednisone and duo nebs, will monitor. Diet: Heart healthy DVT prophylaxis: Xarelto lines/drains: PIV Fluids: NA Code status: Full Subjective Date/time seen: 10/26/25 16:14 Interval history: Shortness of breath Narrative: 69-year-old male with a past medical history of the COPD, CHF, hypertension presents to the ED on 10/25/2025 with complaints of increasing shortness of breath with intermittent dry cough. Patient recently moved from [place] to live with his daughter. Patient was set up with a new PCP and had his 1st appointment on 10/09/2025. During that appointment patient admitted to having increasing COPD symptoms and using his nebulizer 4 times daily. Patient refused to present to the ED and was treated for an acute exacerbation with doxycycline and Medrol Dosepak. Patient further states he was on a life vest and self discontinued it. Patient completed his steroid and antibiotic course with some relief. Patient's symptoms worsened once finishing the course. Patient pre sented to his PCP again today and was directed to the ED as he was visibly short of breath. Patient denies fevers, chills, chest pain. [facility] patient currently attempting to establish care here in [place]. patient with history of cardiomyopathy patient presented with shortness of breath volume overloaded, patient was give IV Lasix 40mg in the ER and patient stats he is feeling much better compared to when he arrived, most likely patient is having acute on chronic systolic CHF, cardiac ECHO is pending, at one time patient was on LIFEVEST however he decided to stop wearing the LIFEVEST will consult director of music for further recommendation to follow. patient also has history of COPD which also causing his shortness of breath and being treated prednisone and duo nebs, will monitor. Review of Systems Review of Systems: All systems reviewed & are unremarkable except as noted in HPI and below Exam Narrative: Patient is comfortable, NAD HEENT: eyes are clear and none icteric LUNGS: Bilateral fair air entry with rales and rhonchi HEART: RR S1S2 ABD: BS+, Soft and nontender Lower extremities: no edema SKIN: nonjaundiced Neuro: grossly intact. Objective Data Vital Signs Vital Signs: Vital Signs - 24 hr 10/25/25 17:05 10/25/25 18:31 10/25/25 20:25 Temperature 36.8 C Pulse Rate 101 H 116 H 105 H Respiratory Rate 20 22 H 20 Blood Pressure 102/72 114/80 102/65 Pulse Oximetry 96 98 95 Oxygen Delivery Fraction of Inspired Oxygen 10/25/25 21:47 10/25/25 22:05 10/25/25 22:05 Temperature Pulse Rate 105 H 101 H 101 H Respiratory Rate 18 18 Blood Pressure Pulse Oximetry 93 Oxygen Delivery Room Air Fraction of Inspired Oxygen 21 10/26/25 02:50 10/26/25 04:42 10/26/25 07:35 Temperature 36.8 C Pulse Rate 84 74 Respiratory Rate 16 18 Blood Pressure 100/58 L Pulse Oximetry 96 93 Oxygen Delivery Room Air Fraction of Inspired Oxygen 10/26/25 07:35 10/26/25 07:45 10/26/25 08:46 Temperature Pulse Rate 76 90 88 Respiratory Rate 16 16 Blood Pressure Pulse Oximetry Oxygen Delivery Fraction of Inspired Oxygen 10/26/25 13:42 10/26/25 13:50 10/26/25 14:00 Temperature 36.6 C Pulse Rate 76 76 83 Respiratory Rate 18 18 16 Blood Pressure 95/60 L Pulse Oximetry 95 Oxygen Delivery Fraction of Inspired Oxygen Intake/Output Intake/Output: Intake & Output 10/23/25 10/24/25 10/25/25 10/26/25 23:59 23:59 23:59 23:59 Intake Total 550 590 Output Total 200 Balance 550 390 Meds/Results Medications: Active Medications Generic Name Dose Route Start Last Admin Trade Name Freq PRN Reason Stop Dose Admin Acetaminophen 650 mg 10/25/25 17:11 Acetaminophen 325 Mg Tablet PO Q4H PRN Mild Pain (1-3) or Fever Hydrocodone Bitart/Acetaminophen 1 tab 10/25/25 17:11 Hydrocodone/Acetaminophen (*Crx) 5-325 Mg Tablet PO Q4H PRN Pain Rated 4-6 Albuterol/Ipratropium 3 ml 10/25/25 20:00 10/26/25 13:41 Ipratropium 0.5 Mg/Albuterol Sulfate 2.5 Mg (Base) Ampul.Neb 3 Ml INHALATION 3 ml Q6HRT CARIDAD Administration Aripiprazole 5 mg 10/26/25 09:00 10/26/25 09:36 Aripiprazole 5 Mg Tablet PO 5 mg DAILY CARIDAD Administration Aspirin 81 mg 10/26/25 08:00 10/26/25 08:46 Aspirin 81 Mg Chewable Tablet PO 81 mg DAILY@0800 CARIDAD Administration Atorvastatin Calcium 20 mg 10/26/25 11:35 10/26/25 13:11 Atorvastatin 20 Mg Tablet PO 20 mg DAILY CARIDAD Administration Budesonide 0.5 mg 10/26/25 08:00 10/26/25 07:34 Budesonide Respule Neb 0.5 Mg/2 Ml Amp INHALATION 0.5 mg DAILYRT CARIDAD Administration Carvedilol 6.25 mg 10/25/25 21:00 10/26/25 08:46 Carvedilol 6.25 Mg Tablet PO 6.25 mg Q12H CARIDAD Administration Cyproheptadine HCl 8 mg 10/25/25 21:00 10/25/25 21:54 Cyproheptadine Hcl 4 Mg Tablet PO 8 mg QHS CARIDAD Administration Cyproheptadine HCl 2 mg 10/25/25 21:00 10/25/25 21:54 Cyproheptadine Hcl 2 Mg Tablet PO 2 mg QHS CARIDAD Administration Divalproex Sodium 250 mg 10/25/25 21:10 10/25/25 21:53 Divalproex Sodium Er 250 Mg Tab.24h PO 250 mg QPM CARIDAD Administration Empagliflozin 12.5 mg 10/26/25 09:00 10/26/25 09:36 Empagliflozin 12.5 Mg Tablet PO 12.5 mg DAILY CARIDAD Administration Furosemide 40 mg 10/26/25 09:00 10/26/25 08:46 Furosemide 40 Mg Tablet PO 40 mg QAM CARIDAD Administration Gabapentin 300 mg 10/25/25 21:00 10/25/25 21:47 Gabapentin 300 Mg Capsule PO 300 mg QHS CARIDAD Administration Levetiracetam 750 mg 10/25/25 21:10 10/26/25 08:46 Levetiracetam 250 Mg Tablet PO 750 mg Q12HR CARIDAD Administration Methylprednisolone Sodium Succinate 60 mg 10/25/25 18:00 10/26/25 11:28 Methylprednisolone Sod Succ 125 Mg Vial IV PUSH 60 mg Q6HR CARIDAD Administration Mirtazapine 15 mg 10/25/25 21:00 10/25/25 21:48 Mirtazapine 15 Mg Tablet PO 15 mg QHS CARIDAD Administration Morphine Sulfate 2 mg 10/25/25 17:11 Morphine Sulfate (*Crx) 4 Mg/Ml Inj IV PUSH Q2H PRN Pain Rated 7-10 Perflutren Lipid Microsphere 0 ml 10/25/25 20:50 Perflutren Lipid Microspheres 1.5 Ml Vial Diluted To 10 Ml Total Volume IV PUSH 10/28/25 20:50 ONCE PRN adequate visualization Protocol Rivaroxaban 20 mg 10/25/25 21:10 10/25/25 21:48 Rivaroxaban 20 Mg Tablet PO 20 mg QPM CARIDAD Administration Sacubitril/Valsartan 1 tablet 10/25/25 21:10 10/26/25 08:46 Sacubitril/Valsartan 49-51 Mg Tablet PO 1 tablet Q12HR CARIDAD Administration Sertraline HCl 100 mg 10/25/25 21:10 10/25/25 21:47 Sertraline Hcl 50 Mg Tablet PO 100 mg HS CARIDAD Administration Spironolactone 25 mg 10/26/25 09:00 10/26/25 08:47 Spironolactone 25 Mg Tablet PO 25 mg DAILY CARIDAD Administration Tamsulosin HCl 0.4 mg 10/25/25 21:15 10/25/25 21:57 Tamsulosin Hcl 0.4 Mg Capsule PO 0.4 mg HS CARIDAD Administration Radiology Results: ITS Impressions Chest X-Ray 10/25/25 13:29 Impression: No acute cardiopulmonary abnormality. Labs Labs: Laboratory Results - last 24 hr 10/25/25 10/26/25 10/26/25 16:35 05:56 05:56 WBC 11.5 H RBC 4.58 L Hgb 12.8 L Hct 39.8 L MCV 86.9 MCH 27.9 MCHC 32.2 RDW 14.5 Plt Count 136 L MPV 10.9 H Immature Gran % (Auto) 1.1 H Neut % (Auto) 91.6 H Lymph % (Auto) 6.0 L O'Brien % (Auto) 1.2 L Eos % (Auto) 0.0 Baso % (Auto) 0.1 L Lymph # (Auto) 0.69 L O'Brien # (Auto) 0.1 Eos # (Auto) 0.0 Baso # (Auto) 0.0 Abs Immat Gran (auto) 0.13 H Absolute Neuts (auto) 10.6 H Absolute Nucleated RBC 0.000 Nucleated RBC % 0.0 Puncture Site Right radial ABG pH 7.357 ABG pCO2 36.2 ABG pO2 71.4 L ABG PO2/FiO2 Ratio 3.40 ABG HCO3 19.9 L ABG O2 Saturation 93.9 L ABG O2 Content 19.0 ABG Base Excess -4.9 A-a Gradient 35.0 Oxyhemoglobin 92.4 Carboxyhemoglobin 1.8 Methemoglobin 0.2 Reduced Hemoglobin 5.6 H Total Hemoglobin 14.6 O2 Delivery Device Room air O2 Liters/Min Not Reportable FiO2 21 Sodium 130 L Potassium 4.6 Chloride 101 Carbon Dioxide 24 Anion Gap 5 BUN 35 H Creatinine 1.32 H Estim Creat Clear Calc 51 Estimated GFR 54 L Glucose 178 H Calcium 8.8 Iron 45 L TIBC 249 L % Saturation 18 L Ferritin 101.00 Troponin I 0.014 Triglycerides 63 Cancelled Cholesterol 155 LDL Cholesterol Direct HDL Direct Vitamin B12 Folate TSH (Reflex) Free T4 Total T3 10/26/25 10/26/25 10/26/25 05:56 05:56 05:56 WBC RBC Hgb Hct MCV MCH MCHC RDW Plt Count MPV Immature Gran % (Auto) Neut % (Auto) Lymph % (Auto) O'Brien % (Auto) Eos % (Auto) Baso % (Auto) Lymph # (Auto) O'Brien # (Auto) Eos # (Auto) Baso # (Auto) Abs Immat Gran (auto) Absolute Neuts (auto) Absolute Nucleated RBC Nucleated RBC % Puncture Site ABG pH ABG pCO2 ABG pO2 ABG PO2/FiO2 Ratio ABG HCO3 ABG O2 Saturation ABG O2 Content ABG Base Excess A-a Gradient Oxyhemoglobin Carboxyhemoglobin Methemoglobin Reduced Hemoglobin Total Hemoglobin O2 Delivery Device O2 Liters/Min FiO2 Sodium Potassium Chloride Carbon Dioxide Anion Gap BUN Creatinine Estim Creat Clear Calc Estimated GFR Glucose Calcium Iron TIBC % Saturation Ferritin Troponin I Triglycerides Cholesterol Cancelled LDL Cholesterol Direct 94 Cancelled HDL Direct 41 Cancelled Vitamin B12 682.0 Folate 8.5 TSH (Reflex) 0.254 L Free T4 1.12 Total T3 2.03 H
[2025-10-26] MEDS: RIVAROXABAN 20 MG TABLET PO (17:15)
[2025-10-26] MEDS: DIVALPROEX SODIUM ER 250 MG TAB.24H PO (17:16)
[2025-10-26] MEDS: GABAPENTIN 300 MG CAPSULE PO (20:15)
[2025-10-26] MEDS: TAMSULOSIN HCL 0.4 MG CAPSULE PO (20:16)
[2025-10-26] MEDS: CYPROHEPTADINE HCL 4 MG TABLET 8 MG PO (20:16)
[2025-10-26] MEDS: CYPROHEPTADINE HCL 2 MG TABLET PO (20:16)
[2025-10-26] MEDS: SERTRALINE HCL 50 MG TABLET 100 MG PO (20:16)
[2025-10-26] MEDS: MIRTAZAPINE 15 MG TABLET PO (20:16)
[2025-10-27] VITALS (14 sets, daily range): BP systolic 86–120; BP diastolic 50–90; PULSE 66–98; RESP 14–18; TEMP 36.4–36.8; O2SAT 92–97
[2025-10-27] MEDS: IPRATROPIUM 0.5 MG/ALBUTEROL SULFATE 2.5 MG (BASE) AMPUL.NEB 3 ML INHALATION ×4 (02:30→19:34)
[2025-10-27 06:26] LABS: Hematocrit 40.7 % (42.0-52.0); Hemoglobin 13.3 g/dL (14.0-18.0); Mean Corpuscular HGB Conc 32.7 g/dl (32-36); Mean Corpuscular Hemoglobin 28.3 pg (26-34); Mean Corpuscular Volume 86.6 fl (80-100); Platelet Count Result 150 k/mm3 (150-375); Red Blood Count 4.70 M/mm3 (4.6-6.20); White Blood Count 19.5 K/mm3 (4.5-10.0)
[2025-10-27 06:55] LABS: Anion Gap 8 mmol/L (4-12); Blood Urea Nitrogen 38 mg/dL (9-20); Calcium 8.9 mg/dL (8.4-10.2); Carbon Dioxide 21 mmol/L (22-30); Chloride 102 mmol/L (98-107); Estimated CRCL calculation 54 ml/min; Estimated Glomerular Filt Rate 58; Glucose 152 mg/dL (65-110); Magnesium 2.4 mg/dL (1.6-2.3); Potassium 4.3 mmol/L (3.4-5.0); Sodium 131 mmol/L (137-145)
[2025-10-27] MEDS: BUDESONIDE RESPULE NEB 0.5 MG/2 ML AMP INHALATION (08:07)
[2025-10-27] MEDS: ATORVASTATIN 20 MG TABLET PO (09:03)
[2025-10-27] MEDS: FUROSEMIDE 40 MG TABLET PO (09:03)
[2025-10-27] MEDS: SPIRONOLACTONE 25 MG TABLET PO (09:03)
[2025-10-27] MEDS: ASPIRIN 81 MG CHEWABLE TABLET PO (09:04)
[2025-10-27] MEDS: EMPAGLIFLOZIN 12.5 MG TABLET PO (09:04)
--- NOTE | 2025-10-27 12:42 | PM.PNCARD ---
Progress Note: A&P Assessment and Plan (1) Heart failure: Qualifiers: Heart failure type: unspecified Heart failure chronicity: unspecified Qualified Code(s): I50.9 - Heart failure, unspecified Code(s): I50.9 - Heart failure, unspecified Status: Chronic Plan Chronic diastolic heart failure currently compensated Shortness of breath likely to COPD exacerbation Coronary artery disease history PCI Hypertension controlled History of DVT Plan Change Lasix to oral 40 mg p.o. daily Treatment of underlying COPD per primary team Continue oral anticoagulation Xarelto Continue spironolactone 25 mg daily Continue carvedilol, Jardiance, Entresto cardiology will sign off please call back if needed Subjective Date/time seen: 10/27/25 12:42 Interval history: f/u CHF No acute events Review of Systems Review of Systems: All systems reviewed & are unremarkable except as noted in HPI and below Exam Const: General: comfortable and no acute distress Eyes: Sclera: sclerae normal Neck: Neck: no JVD Resp: Effort & Inspection: normal respiratory effort Auscultation: wheezes Cardio: Rate: regular rate Rhythm: regular rhythm Heart sounds: no gallops, no murmurs and no rubs Neuro: Speech: normal speech Extrem: General: no edema Psych: Mental Status: mental status grossly normal Objective Data Vital Signs Vital Signs: Vital Signs - 24 hr 10/26/25 13:42 10/26/25 13:50 10/26/25 14:00 Temperature 36.6 C Pulse Rate 76 76 83 Respiratory Rate 18 18 16 Blood Pressure 95/60 L Pulse Oximetry 95 Oxygen Delivery 10/26/25 20:05 10/26/25 20:15 10/26/25 21:13 Temperature 36.7 C Pulse Rate 79 75 80 Respiratory Rate 17 18 Blood Pressure 91/63 L Pulse Oximetry 100 Oxygen Delivery 10/26/25 21:16 10/26/25 21:20 10/27/25 02:31 Temperature Pulse Rate 80 77 88 Respiratory Rate 18 18 Blood Pressure Pulse Oximetry 91 Oxygen Delivery Room Air 10/27/25 02:38 10/27/25 06:00 10/27/25 08:08 Temperature 36.5 C Pulse Rate 84 66 82 Respiratory Rate 18 17 18 Blood Pressure 95/67 L Pulse Oximetry 96 Oxygen Delivery 10/27/25 08:10 10/27/25 08:18 10/27/25 09:00 Temperature Pulse Rate 81 83 Respiratory Rate 18 Blood Pressure 93/59 L Pulse Oximetry 92 Oxygen Delivery Room Air 10/27/25 09:05 Temperature Pulse Rate 83 Respiratory Rate Blood Pressure Pulse Oximetry Oxygen Delivery Intake/Output Intake/Output: Intake & Output 10/24/25 10/25/25 10/26/25 10/27/25 23:59 23:59 23:59 23:59 Intake Total 550 590 780 Output Total 200 Balance 550 390 780 Meds/Results Medications: Active Medications Generic Name Dose Route Start Last Admin Trade Name Freq PRN Reason Stop Dose Admin Acetaminophen 650 mg 10/25/25 17:11 Acetaminophen 325 Mg Tablet PO Q4H PRN Mild Pain (1-3) or Fever Hydrocodone Bitart/Acetaminophen 1 tab 10/25/25 17:11 Hydrocodone/Acetaminophen (*Crx) 5-325 Mg Tablet PO Q4H PRN Pain Rated 4-6 Albuterol/Ipratropium 3 ml 10/25/25 20:00 10/27/25 08:07 Ipratropium 0.5 Mg/Albuterol Sulfate 2.5 Mg (Base) Ampul.Neb 3 Ml INHALATION 3 ml Q6HRT DAVON Administration Aripiprazole 5 mg 10/26/25 09:00 10/27/25 09:03 Aripiprazole 5 Mg Tablet PO 5 mg DAILY DAVON Administration Aspirin 81 mg 10/26/25 08:00 10/27/25 09:04 Aspirin 81 Mg Chewable Tablet PO 81 mg DAILY@0800 DAVON Administration Atorvastatin Calcium 20 mg 10/26/25 11:35 10/27/25 09:03 Atorvastatin 20 Mg Tablet PO 20 mg DAILY DAVON Administration Budesonide 0.5 mg 10/26/25 08:00 10/27/25 08:07 Budesonide Respule Neb 0.5 Mg/2 Ml Amp INHALATION 0.5 mg DAILYRT DAVON Administration Carvedilol 6.25 mg 10/25/25 21:00 10/27/25 09:05 Carvedilol 6.25 Mg Tablet PO 6.25 mg Q12H DAVON Administration Cyproheptadine HCl 8 mg 10/25/25 21:00 10/26/25 20:16 Cyproheptadine Hcl 4 Mg Tablet PO 8 mg QHS DAVON Administration Cyproheptadine HCl 2 mg 10/25/25 21:00 10/26/25 20:16 Cyproheptadine Hcl 2 Mg Tablet PO 2 mg QHS DAVON Administration Divalproex Sodium 250 mg 10/25/25 21:10 10/26/25 17:16 Divalproex Sodium Er 250 Mg Tab.24h PO 250 mg QPM DAVON Administration Empagliflozin 12.5 mg 10/26/25 09:00 10/27/25 09:04 Empagliflozin 12.5 Mg Tablet PO 12.5 mg DAILY DAVON Administration Furosemide 40 mg 10/26/25 09:00 10/27/25 09:03 Furosemide 40 Mg Tablet PO 40 mg QAM DAVON Administration Gabapentin 300 mg 10/25/25 21:00 10/26/25 20:15 Gabapentin 300 Mg Capsule PO 300 mg QHS DAVON Administration Levetiracetam 750 mg 10/25/25 21:10 10/27/25 09:03 Levetiracetam 250 Mg Tablet PO 750 mg Q12HR DAVON Administration Methylprednisolone Sodium Succinate 60 mg 10/25/25 18:00 10/27/25 12:08 Methylprednisolone Sod Succ 125 Mg Vial IV PUSH 60 mg Q6HR DAVON Administration Mirtazapine 15 mg 10/25/25 21:00 10/26/25 20:16 Mirtazapine 15 Mg Tablet PO 15 mg QHS DAVON Administration Morphine Sulfate 2 mg 10/25/25 17:11 Morphine Sulfate (*Crx) 4 Mg/Ml Inj IV PUSH Q2H PRN Pain Rated 7-10 Perflutren Lipid Microsphere 0 ml 10/25/25 20:50 Perflutren Lipid Microspheres 1.5 Ml Vial Diluted To 10 Ml Total Volume IV PUSH 10/28/25 20:50 ONCE PRN adequate visualization Protocol Rivaroxaban 20 mg 10/25/25 21:10 10/26/25 17:15 Rivaroxaban 20 Mg Tablet PO 20 mg QPM DAVON Administration Sacubitril/Valsartan 1 tablet 10/25/25 21:10 10/27/25 09:06 Sacubitril/Valsartan 49-51 Mg Tablet PO Not Given Q12HR DAVON Sertraline HCl 100 mg 10/25/25 21:10 10/26/25 20:16 Sertraline Hcl 50 Mg Tablet PO 100 mg HS DAVON Administration Spironolactone 25 mg 10/26/25 09:00 10/27/25 09:03 Spironolactone 25 Mg Tablet PO 25 mg DAILY DAVON Administration Tamsulosin HCl 0.4 mg 10/25/25 21:15 10/26/25 20:16 Tamsulosin Hcl 0.4 Mg Capsule PO 0.4 mg HS DAVON Administration Radiology Results: ITS Impressions Chest X-Ray 10/25/25 13:29 Impression: No acute cardiopulmonary abnormality. Labs Labs: Laboratory Results - last 24 hr 10/27/25 06:07 WBC 19.5 H RBC 4.70 Hgb 13.3 L Hct 40.7 L MCV 86.6 MCH 28.3 MCHC 32.7 RDW 14.6 H Plt Count 150 MPV 11.1 H Sodium 131 L Potassium 4.3 Chloride 102 Carbon Dioxide 21 L Anion Gap 8 BUN 38 H Creatinine 1.24 Estim Creat Clear Calc 54 Estimated GFR 58 L Glucose 152 H Calcium 8.9 Magnesium 2.4 H
--- NOTE | 2025-10-27 12:59 | PM.IMPN2 ---
Assessment and Plan Assessment and Plan (1) COPD exacerbation: Code(s): J44.1 - Chronic obstructive pulmonary disease with (acute) exacerbation Status: Acute Assessment and Plan: Having increasing COPD symptoms since at least 10/09/2025 with minimal relief from outpatient treatment. Chest x-ray with no acute process. Patient has new patient appointment with pulmonology on 12/25/2025. - continuous albuterol nebulizer in ED - DuoNebs Q6H caridad - Methylprednisolone 60 mg IV q.6 - home medications: DuoNeb p.r.n., recently resumed Pulmicort, albuterol p.r.n. - currently not requiring supplemental O2 - Pulmicort (2) Heart failure: Qualifiers: Heart failure type: unspecified Heart failure chronicity: unspecified Qualified Code(s): I50.9 - Heart failure, unspecified Code(s): I50.9 - Heart failure, unspecified Status: Chronic Assessment and Plan: Patient was reportedly wearing a life vest in [place] before moving. EF was reportedly ?low? per daughter. BNP 1650, up from 786 on 10/09. - echo ordered - 40 mg IV p.o. furosemide once - continue furosemide, Jardiance, Entresto, spironolactone - monitor I&Os - trend renal function - will likely need LifeVest (3) Hypertension: Qualifiers: Hypertension type: primary hypertension Qualified Code(s): I10 - Essential (primary) hypertension Code(s): I10 - Essential (primary) hypertension Status: Chronic Assessment and Plan: Continue Coreg (4) Anemia: Qualifiers: Anemia type: unspecified type Qualified Code(s): D64.9 - Anemia, unspecified Code(s): D64.9 - Anemia, unspecified Status: Acute Assessment and Plan: No active bleeding. Patient denies melena. - Hgb 13.9 - add iron, TIBC, ferritin, B12, folic acid, and TSH - trend H&H (5) BPH (benign prostatic hyperplasia): Qualifiers: Lower urinary tract symptom presence: unspecified whether lower urinary tract symptoms present Qualified Code(s): N40.0 - Benign prostatic hyperplasia without lower urinary tract symptoms Code(s): N40.0 - Benign prostatic hyperplasia without lower urinary tract symptoms Status: Acute Assessment and Plan: Continue tamsulosin (6) Seizure: Code(s): R56.9 - Unspecified convulsions Status: Chronic Assessment and Plan: History of seizures. Has not had one in ?years -continue Shaheen Mcallister Plan patient with history of cardiomyopathy patient presented with shortness of breath volume overloaded, patient was give IV Lasix 40mg in the ER and patient stats he is feeling much better compared to when he arrived, most likely patient is having acute on chronic systolic CHF, cardiac ECHO is pending, at one time patient was on LIFEVEST however he decided to stop wearing the LIFEVEST will consult central office equipment installer for further recommendation to follow. patient also has history of COPD which also causing his shortness of breath and being treated prednisone and duo nebs, will monitor. Patient stats feeling much better compared to when he arrived, his cardiac ECHO showed LV function with EF of 50-55%, patient is seen by the central office equipment installer suspect shortness of breath most likely 2/2 COPD, patient clinically stable, will have PT/OT evaluate the patient, may benefit going to rehab. Diet: Heart healthy DVT prophylaxis: Xarelto lines/drains: PIV Fluids: NA Code status: Full Subjective Date/time seen: 10/27/25 12:59 Interval history: Shortness of breath Narrative: 69-year-old male with a past medical history of the COPD, CHF, hypertension presents to the ED on 10/25/2025 with complaints of increasing shortness of breath with intermittent dry cough. Patient recently moved from [place] to live with his daughter. Patient was set up with a new PCP and had his 1st appointment on 10/09/2025. During that appointment patient admitted to having increasing COPD symptoms and using his nebulizer 4 times daily. Patient refused to present to the ED and was treated for an acute exacerbation with doxycycline and Medrol Dosepak. Patient further states he was on a life vest and self discontinued it. Patient completed his steroid and antibiotic course with some relief. Patient's symptoms worsened once finishing the course. Patient presented to his PCP again today and was directed to the ED as he was visibly short of breath. Patient denies fevers, chills, chest pain. [facility] patient currently attempting to establish care here in [place]. patient with history of cardiomyopathy patient presented with shortness of breath volume overloaded, patient was give IV Lasix 40mg in the ER and patient stats he is feeling much better compared to when he arrived, most likely patient is having acute on chronic systolic CHF, cardiac ECHO is pending, at one time patient was on LIFEVEST however he decided to stop wearing the LIFEVEST will consult central office equipment installer for further recommendation to follow. patient also has history of COPD which also causing his shortness of breath and being treated prednisone and duo nebs, will monitor. Patient stats feeling much better compared to when he arrived, his cardiac ECHO showed LV function with EF of 50-55%, patient is seen by the central office equipment installer suspect shortness of breath most likely 2/2 COPD, patient clinically stable, will have PT/OT evaluate the patient, may benefit going to rehab. Review of Systems Review of Systems: All systems reviewed & are unremarkable except as noted in HPI and below Exam Narrative: Patient is comfortable, NAD HEENT: eyes are clear and none icteric LUNGS: Bilateral fair air entry with rales and rhonchi HEART: RR S1S2 ABD: BS+, Soft and nontender Lower extremities: no edema SKIN: nonjaundiced Neuro: grossly intact. Objective Data Vital Signs Vital Signs: Vital Signs - 24 hr 10/26/25 13:42 10/26/25 13:50 10/26/25 14:00 Temperature 36.6 C Pulse Rate 76 76 83 Respiratory Rate 18 18 16 Blood Pressure 95/60 L Pulse Oximetry 95 Oxygen Delivery 10/26/25 20:05 10/26/25 20:15 10/26/25 21:13 Temperature 36.7 C Pulse Rate 79 75 80 Respiratory Rate 17 18 Blood Pressure 91/63 L Pulse Oximetry 100 Oxygen Delivery 10/26/25 21:16 10/26/25 21:20 10/27/25 02:31 Temperature Pulse Rate 80 77 88 Respiratory Rate 18 18 Blood Pressure Pulse Oximetry 91 Oxygen Delivery Room Air 10/27/25 02:38 10/27/25 06:00 10/27/25 08:08 Temperature 36.5 C Pulse Rate 84 66 82 Respiratory Rate 18 17 18 Blood Pressure 95/67 L Pulse Oximetry 96 Oxygen Delivery 10/27/25 08:10 10/27/25 08:18 10/27/25 09:00 Temperature Pulse Rate 81 83 Respiratory Rate 18 Blood Pressure 93/59 L Pulse Oximetry 92 Oxygen Delivery Room Air 10/27/25 09:05 Temperature Pulse Rate 83 Respiratory Rate Blood Pressure Pulse Oximetry Oxygen Delivery Intake/Output Intake/Output: Intake & Output 10/24/25 10/25/25 10/26/25 10/27/25 23:59 23:59 23:59 23:59 Intake Total 550 590 780 Output Total 200 Balance 550 390 780 Meds/Results Medications: Active Medications Generic Name Dose Route Start Last Admin Trade Name Freq PRN Reason Stop Dose Admin Acetaminophen 650 mg 10/25/25 17:11 Acetaminophen 325 Mg Tablet PO Q4H PRN Mild Pain (1-3) or Fever Hydrocodone Bitart/Acetaminophen 1 tab 10/25/25 17:11 Hydrocodone/Acetaminophen (*Crx) 5-325 Mg Tablet PO Q4H PRN Pain Rated 4-6 Albuterol/Ipratropium 3 ml 10/25/25 20:00 10/27/25 08:07 Ipratropium 0.5 Mg/Albuterol Sulfate 2.5 Mg (Base) Ampul.Neb 3 Ml INHALATION 3 ml Q6HRT CARIDAD Administration Aripiprazole 5 mg 10/26/25 09:00 10/27/25 09:03 Aripiprazole 5 Mg Tablet PO 5 mg DAILY CARIDAD Administration Aspirin 81 mg 10/26/25 08:00 10/27/25 09:04 Aspirin 81 Mg Chewable Tablet PO 81 mg DAILY@0800 CARIDAD Administration Atorvastatin Calcium 20 mg 10/26/25 11:35 10/27/25 09:03 Atorvastatin 20 Mg Tablet PO 20 mg DAILY CARIDAD Administration Budesonide 0.5 mg 10/26/25 08:00 10/27/25 08:07 Budesonide Respule Neb 0.5 Mg/2 Ml Amp INHALATION 0.5 mg DAILYRT CARIDAD Administration Carvedilol 6.25 mg 10/25/25 21:00 10/27/25 09:05 Carvedilol 6.25 Mg Tablet PO 6.25 mg Q12H CARIDAD Administration Cyproheptadine HCl 8 mg 10/25/25 21:00 10/26/25 20:16 Cyproheptadine Hcl 4 Mg Tablet PO 8 mg QHS CARIDAD Administration Cyproheptadine HCl 2 mg 10/25/25 21:00 10/26/25 20:16 Cyproheptadine Hcl 2 Mg Tablet PO 2 mg QHS CARIDAD Administration Divalproex Sodium 250 mg 10/25/25 21:10 10/26/25 17:16 Divalproex Sodium Er 250 Mg Tab.24h PO 250 mg QPM CARIDAD Administration Empagliflozin 12.5 mg 10/26/25 09:00 10/27/25 09:04 Empagliflozin 12.5 Mg Tablet PO 12.5 mg DAILY CARIDAD Administration Furosemide 40 mg 10/26/25 09:00 10/27/25 09:03 Furosemide 40 Mg Tablet PO 40 mg QAM CARIDAD Administration Gabapentin 300 mg 10/25/25 21:00 10/26/25 20:15 Gabapentin 300 Mg Capsule PO 300 mg QHS CARIDAD Administration Levetiracetam 750 mg 10/25/25 21:10 10/27/25 09:03 Levetiracetam 250 Mg Tablet PO 750 mg Q12HR CARIDAD Administration Methylprednisolone Sodium Succinate 60 mg 10/25/25 18:00 10/27/25 12:08 Methylprednisolone Sod Succ 125 Mg Vial IV PUSH 60 mg Q6HR CARIDAD Administration Mirtazapine 15 mg 10/25/25 21:00 10/26/25 20:16 Mirtazapine 15 Mg Tablet PO 15 mg QHS CARIDAD Administration Morphine Sulfate 2 mg 10/25/25 17:11 Morphine Sulfate (*Crx) 4 Mg/Ml Inj IV PUSH Q2H PRN Pain Rated 7-10 Perflutren Lipid Microsphere 0 ml 10/25/25 20:50 Perflutren Lipid Microspheres 1.5 Ml Vial Diluted To 10 Ml Total Volume IV PUSH 10/28/25 20:50 ONCE PRN adequate visualization Protocol Rivaroxaban 20 mg 10/25/25 21:10 10/26/25 17:15 Rivaroxaban 20 Mg Tablet PO 20 mg QPM CARIDAD Administration Sacubitril/Valsartan 1 tablet 10/25/25 21:10 10/27/25 09:06 Sacubitril/Valsartan 49-51 Mg Tablet PO Not Given Q12HR CARIDAD Sertraline HCl 100 mg 10/25/25 21:10 10/26/25 20:16 Sertraline Hcl 50 Mg Tablet PO 100 mg HS CARIDAD Administration Spironolactone 25 mg 10/26/25 09:00 10/27/25 09:03 Spironolactone 25 Mg Tablet PO 25 mg DAILY CARIDAD Administration Tamsulosin HCl 0.4 mg 10/25/25 21:15 10/26/25 20:16 Tamsulosin Hcl 0.4 Mg Capsule PO 0.4 mg HS CARIDAD Administration Radiology Results: ITS Impressions Chest X-Ray 10/25/25 13:29 Impression: No acute cardiopulmonary abnormality. Labs Labs: Laboratory Results - last 24 hr 10/27/25 06:07 WBC 19.5 H RBC 4.70 Hgb 13.3 L Hct 40.7 L MCV 86.6 MCH 28.3 MCHC 32.7 RDW 14.6 H Plt Count 150 MPV 11.1 H Sodium 131 L Potassium 4.3 Chloride 102 Carbon Dioxide 21 L Anion Gap 8 BUN 38 H Creatinine 1.24 Estim Creat Clear Calc 54 Estimated GFR 58 L Glucose 152 H Calcium 8.9 Magnesium 2.4 H
[2025-10-27] MEDS: RIVAROXABAN 20 MG TABLET PO (17:22)
[2025-10-27] MEDS: DIVALPROEX SODIUM ER 250 MG TAB.24H PO (17:23)
[2025-10-27] MEDS: MIRTAZAPINE 15 MG TABLET PO (21:36)
[2025-10-27] MEDS: CYPROHEPTADINE HCL 2 MG TABLET PO (21:37)
[2025-10-27] MEDS: SERTRALINE HCL 50 MG TABLET 100 MG PO (21:37)
[2025-10-27] MEDS: GABAPENTIN 300 MG CAPSULE PO (21:37)
[2025-10-27] MEDS: TAMSULOSIN HCL 0.4 MG CAPSULE PO (21:37)
[2025-10-27] MEDS: SACUBITRIL/VALSARTAN 49-51 MG TABLET 1 TABLET PO (21:37)
[2025-10-27] MEDS: CYPROHEPTADINE HCL 4 MG TABLET 8 MG PO (21:38)
[2025-10-28] MEDS: IPRATROPIUM 0.5 MG/ALBUTEROL SULFATE 2.5 MG (BASE) AMPUL.NEB 3 ML INHALATION ×2 (01:28→08:30)
[2025-10-28 01:29] VITALS: PULSE 79; RESP 16
[2025-10-28 01:34] VITALS: PULSE 79; RESP 16
[2025-10-28 06:00] VITALS: BP 98/72; PULSE 57; RESP 18; TEMP 36.1; O2SAT 94
[2025-10-28 06:25] LABS: Hematocrit 41.2 % (42.0-52.0); Hemoglobin 13.1 g/dL (14.0-18.0); Mean Corpuscular HGB Conc 31.8 g/dl (32-36); Mean Corpuscular Hemoglobin 27.9 pg (26-34); Mean Corpuscular Volume 87.7 fl (80-100); Platelet Count Result 150 k/mm3 (150-375); Red Blood Count 4.70 M/mm3 (4.6-6.20); White Blood Count 13.5 K/mm3 (4.5-10.0)
[2025-10-28 07:03] LABS: Anion Gap 5 mmol/L (4-12); Blood Urea Nitrogen 41 mg/dL (9-20); Calcium 8.9 mg/dL (8.4-10.2); Carbon Dioxide 25 mmol/L (22-30); Chloride 101 mmol/L (98-107); Estimated CRCL calculation 51 ml/min; Estimated Glomerular Filt Rate 53; Glucose 164 mg/dL (65-110); Magnesium 2.3 mg/dL (1.6-2.3); Potassium 4.8 mmol/L (3.4-5.0); Sodium 131 mmol/L (137-145)
[2025-10-28 08:30] VITALS: PULSE 73; RESP 20
[2025-10-28] MEDS: BUDESONIDE RESPULE NEB 0.5 MG/2 ML AMP INHALATION (08:30)
[2025-10-28 08:40] VITALS: PULSE 78; RESP 20
[2025-10-28] MEDS: EMPAGLIFLOZIN 12.5 MG TABLET PO (08:59)
[2025-10-28] MEDS: SPIRONOLACTONE 25 MG TABLET PO (08:59)
[2025-10-28] MEDS: ATORVASTATIN 20 MG TABLET PO (08:59)
[2025-10-28] MEDS: ASPIRIN 81 MG CHEWABLE TABLET PO (08:59)
[2025-10-28] MEDS: FUROSEMIDE 40 MG TABLET PO (08:59)
--- NOTE | 2025-10-28 12:33 | P.DS_ITS ---
DS: Summary Time Spent with Patient Time attestation: Total time spent providing and/or coordinating discharge services: DS: Data Data Completed and Pending Labs on day of discharge: Labs from last 24 hours 10/28/25 06:08 WBC 13.5 H RBC 4.70 Hgb 13.1 L Hct 41.2 L MCV 87.7 MCH 27.9 MCHC 31.8 L RDW 14.4 Plt Count 150 MPV 10.8 H Sodium 131 L Potassium 4.8 Chloride 101 Carbon Dioxide 25 Anion Gap 5 BUN 41 H Creatinine 1.33 H Estim Creat Clear Calc 51 Estimated GFR 53 L Glucose 164 H Calcium 8.9 Magnesium 2.3 Discharge Plan Discharge Attending physician on discharge: Soto Santillan Consulting providers: Kellie Workman Discharging Clinician: Soto Santillan Patient Disposition: Home Activity: as tolerated Diet: heart healthy Discharge Instructions: patient to follow up with his primary care provider, sr solutions consultant, and quality assurance assistant as soon as possible, patient is instructed if symptoms worsen to go to nearest ER Patient Instructions: Antibiotic Form, Rivaroxaban (By mouth) Patient Language: British Stand Alone Forms: General Discharge Information Follow-up/Referrals: Angelica Patsor MD [Physician, Pulmonology] Kellie Workman APRN [Advanced Practice Nurse, Cardiology] Jess Vang APRN [Primary Care Provider, Family Practice] Discharge Medications: New prednisone 10 mg tablet 10 mg PO DAILY Qty: 63 0RF Rx Instructions: 6Tx3d, 5Tx3d, 4Tx3d, 3Tx3d, 2Tx3d, 1Tx3d atorvastatin 20 mg Tablet 20 mg PO DAILY Qty: 30 0RF Continued albuterol sulfate [Ventolin HFA] 90 mcg/actuation HFA aerosol inhaler 1 puff inhalation Q4H PRN (Reason: shortness of breath or wheezing) furosemide [Lasix] 40 mg tablet 40 mg PO QAM Qty: 30 0RF carvedilol 12.5 mg tablet 6.25 mg PO Q12H Qty: 60 0RF ipratropium-albuterol 0.5 mg-3 mg(2.5 mg base)/3 mL solution for nebulization 3 ml inhalation Q6H PRN (Reason: wheezing) Qty: 90 0RF sertraline 100 mg tablet 100 mg PO DAILY Qty: 30 0RF Patient Comments: takes at bedtime spironolactone 25 mg tablet 25 mg PO DAILY Qty: 30 0RF cyproheptadine 4 mg tablet See Rx Instructions PO QHS Qty: 30 0RF Rx Instructions: Take 2 1/2 tablet orally every day at bedtime; tamsulosin 0.4 mg capsule 0.4 mg PO DAILY Qty: 30 0RF Patient Comments: takes at bedtime gabapentin 300 mg capsule 300 mg PO QHS Qty: 30 0RF budesonide 0.5 mg/2 mL suspension for nebulization 0.5 mg inhalation DAILY Qty: 30 0RF aspirin 81 mg tablet 81 mg PO DAILY Qty: 30 0RF levetiracetam 750 mg tablet 750 mg PO Q12H Qty: 60 0RF mirtazapine 15 mg tablet 15 mg PO QHS Qty: 30 0RF divalproex 250 mg tablet extended release 24 hr 250 mg PO QPM Qty: 30 0RF aripiprazole 5 mg tablet 5 mg PO DAILY Qty: 30 0RF rivaroxaban 20 mg tablet 20 mg PO QPM Qty: 30 0RF Rx Instructions: must administer with evening meal empagliflozin 25 mg tablet 12.5 mg PO DAILY Qty: 30 0RF sacubitril-valsartan 49-51 mg tablet 1 tablet PO BID Qty: 30 0RF Date of admission: 10/26/25 14:23 Primary Care Provider: Jess Vang Admitting Provider: Soto Santillan Attending physician on admission: Soto Santillan Condition: Stable
== END 2025-10-28 13:15 | disposition home or self-care (01) | DRG 190 ==
LOC: ANHED 18:18 → ANH3MEDSUR 18:22
PROVIDERS: Emergency Medicine; Nurse Practitioner Adult Health; Admitting Provider Family Medicine; Emergency Provider Emergency Medicine; PCP Nurse Practitioner Adult Health; Visit Provider Family Medicine
DX: J44.1 Chronic obstructive pulmonary disease with (acute) exacerbation (principal); I50.23 Acute on chronic systolic (congestive) heart failure; I42.0 Dilated cardiomyopathy; I11.0 Hypertensive heart disease with heart failure; G40.909 Epilepsy, unspecified, not intractable, without status epilepticus; I25.10 Atherosclerotic heart disease of native coronary artery without angina pectoris; M19.90 Unspecified osteoarthritis, unspecified site; F41.9 Anxiety disorder, unspecified; N40.0 Benign prostatic hyperplasia without lower urinary tract symptoms; Z91.199 Patient's noncompliance with other medical treatment and regimen due to unspecified reason; Z86.718 Personal history of other venous thrombosis and embolism; Z86.73 Personal history of transient ischemic attack (TIA), and cerebral infarction without residual deficits; I25.2 Old myocardial infarction; Z95.5 Presence of coronary angioplasty implant and graft
CPT/HCPCS: 36415; 36600; 71045; 80048; 80053; 80061; 82375; 82607; 82728; 82746; 82805; 83050; 83540; 83550; 83735; 83880; 84439; 84443; 84480; 84484; 85018; 85025; 85027; 85055; 85610; 85730; 87637; 93005; 94640; 96374; 97161; 97165; 99285; A9270; C8929; G0378; J1938; J2919; Q9957